=== PATIENT | male | born 1940 | race Caucasian/White ===

== ENCOUNTER 2021-04-05 10:44 | Day surgery (SDC) | payer MEDICARE, SELFPAY ==
[2021-03-25 15:13] VITALS: BMI 24.0
--- NOTE | 2021-03-31 16:40 | MHC.SHP ---
Pre-Procedural Eval Section A The patient is an INPATIENT: No The History & Physical has been completed within 30 days and I have reviewed it.: Yes Section B Chief Complaint: Cataract right eye Allergies: Allergies Allergy/AdvReac Type Severity Reaction Status Date / Time No Known Allergies Allergy Unverified 07/16/20 14:56 [No Known Allergies*] Plan Diagnosis/Plan: Unchanged I have reviewed the history and physical and performed a pertinent physical examination on my patient. No changes have occurred unless specified.
--- NOTE | 2021-04-02 10:22 | HO.ANESPROP2 ---
Documented by User: Katya Us 04/02/21 10:27 HPI - Anesthesia Eval Consult details Narrative: 80yo M for Right Cataract Extraction IOL Insertion PCP Cleared No previous cataract on record Xarelto for afib s/p AVR PMFSH Past Medical History Medical History (Updated 03/25/21 @ 15:18 by Courtney Nieto) Aortic valvular disease Arrhythmia CAD (coronary artery disease) COVID-19 vaccine administered CVA (cerebral vascular accident) GERD (gastroesophageal reflux disease) GI bleed History of urinary retention HTN (hypertension) On anticoagulant therapy On beta toña at home Pre-diabetes Prostate cancer Surgical History Surgical History (Updated 03/25/21 @ 15:18 by Courtney Nieto) H/O colonoscopy Hx of aortic valve replacement Hx of cholecystectomy Social History Social History (Updated 03/25/21 @ 15:21 by Courtney Nieto) Housing Other:: [facility] Living Are you a primary health and social care teacher to a significant other at home: No Do you presently have visiting nurse or other home services: No Patient Tobacco Use Status: Former Tobacco user Quit Date: age 30's Tobacco use type: Cigarette Use of substances other than those prescribed or required for medical reasons: No Have you been hit, kicked, punched, or otherwise hurt by someone within the past year? If so, by whom?: No Advance Directives Information Provided: No Recently lost weight without trying: No Eating poorly because of decreased appetite: No Nutrition Risks: Surgical patient >75years Meds Allergies Allergy/AdvReac Type Severity Reaction Status Date / Time No Known Allergies Allergy Unverified 07/16/20 14:56 [No Known Allergies*] Home Medications Medication Instructions Recorded Confirmed Last Taken Type amlodipine 2.5 mg PO DAILY 03/25/21 03/25/21 04/05/21 History cholecalciferol (vitamin D3) 50 mcg PO DAILY 03/25/21 03/25/21 Unknown History [Vitamin D3] ferrous sulfate [Iron (ferrous 325 mg PO TID 03/25/21 03/25/21 Unknown History sulfate)] furosemide [Lasix] 20 mg PO DAILY 03/25/21 03/25/21 Unknown History lorazepam 0.5 mg PO BID PRN 03/25/21 03/25/21 Unknown History magnesium oxide 400 mg PO DAILY 03/25/21 03/25/21 Unknown History metoprolol tartrate 25 mg PO BID 03/25/21 03/25/21 04/05/21 History multivitamin 1 tab PO DAILY 03/25/21 03/25/21 Unknown History pantoprazole 40 mg PO DAILY 03/25/21 03/25/21 04/05/21 History polyethylene glycol 3350 [Miralax] 17 g PO DAILY 03/25/21 03/25/21 Unknown History rivaroxaban [Xarelto] 15 mg PO QPM 03/25/21 03/25/21 04/04/21 History Exam Exam Date and Time: April 02, 2021 1022 Height,Weight and Vital Signs: Height 5 ft 9 in Weight 73.936 kg Narrative Narrative: Echo 11/2020 LV systolic function is normal without any obvious R WMA and EF 60%. LA mildly enlarged and RA is mildly enlarged. Aortic valve not well visualized. 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 Gradually worsening, but may not be much different from 1 year ago. Assessment and Plan Assessment Anesthesia Assessment: Chart Reviewed Documented by User: Sari Olivas 04/05/21 11:24 [facility] Past Medical History Medical History (Updated 03/25/21 @ 15:18 by Courtney Nieto) Aortic valvular disease Arrhythmia CAD (coronary artery disease) COVID-19 vaccine administered CVA (cerebral vascular accident) GERD (gastroesophageal reflux disease) GI bleed History of urinary retention HTN (hypertension) On anticoagulant therapy On beta toña at home Pre-diabetes Prostate cancer Surgical History Surgical History (Updated 03/25/21 @ 15:18 by Courtney Nieto) H/O colonoscopy Hx of aortic valve replacement Hx of cholecystectomy Social History Social History (Updated 03/25/21 @ 15:21 by Courtney Nieto) Housing Other:: [facility] Are you a primary health and social care teacher to a significant other at home: No Do you presently have visiting nurse or other home services: No Patient Tobacco Use Status: Former Tobacco user Quit Date: age 30's Tobacco use type: Cigarette Use of substances other than those prescribed or required for medical reasons: No Have you been hit, kicked, punched, or otherwise hurt by someone within the past year? If so, by whom?: No Advance Directives Information Provided: No Recently lost weight without trying: No Eating poorly because of decreased appetite: No Nutrition Risks: Surgical patient >75years Meds Allergies Allergy/AdvReac Type Severity Reaction Status Date / Time No Known Allergies Allergy Unverified 07/16/20 14:56 [No Known Allergies*] Home Medications Medication Instructions Recorded Confirmed Last Taken Type amlodipine 2.5 mg PO DAILY 03/25/21 03/25/21 04/05/21 History cholecalciferol (vitamin D3) 50 mcg PO DAILY 03/25/21 03/25/21 Unknown History [Vitamin D3] ferrous sulfate [Iron (ferrous 325 mg PO TID 03/25/21 03/25/21 Unknown History sulfate)] furosemide [Lasix] 20 mg PO DAILY 03/25/21 03/25/21 Unknown History lorazepam 0.5 mg PO BID PRN 03/25/21 03/25/21 Unknown History magnesium oxide 400 mg PO DAILY 03/25/21 03/25/21 Unknown History metoprolol tartrate 25 mg PO BID 03/25/21 03/25/21 04/05/21 History multivitamin 1 tab PO DAILY 03/25/21 03/25/21 Unknown History pantoprazole 40 mg PO DAILY 03/25/21 03/25/21 04/05/21 History polyethylene glycol 3350 [Miralax] 17 g PO DAILY 03/25/21 03/25/21 Unknown History rivaroxaban [Xarelto] 15 mg PO QPM 03/25/21 03/25/21 04/04/21 History Exam Airway Mallampati Class: II TM Dist: >3cm Neck ROM: Full Denture: Upper Partial: Lower Heart: RrR Lungs: CTA Assessment and Plan Assessment Anesthesia Assessment: Anesthesia Plan Discussed and Chart Reviewed Final Anesthetic Review NPO: Yes (Sip water with med) ASA Class: III Final Preanesthetic Review: No Changes in Pt Med Stat and Consent Obtained/Reviewed Patient Risk: Intermediate Procedure Risk: Intermediate Anesthetic Plan Anesthetic Plan: MAC: Disposition: Standard PACU
[2021-04-05 11:11] VITALS: BP 125/56; PULSE 78; RESP 18; TEMP 36.8; O2SAT 94
[2021-04-05] MEDS: Lactated Ringers 500 ML 50 ML IV (11:14)
[2021-04-05] MEDS: Tropicamide 1 % Ophth Sol 3 ML BTL 1 DROP EYE-RIGHT ×3 (11:15→11:17)
[2021-04-05] MEDS: Phenylephrine HCL 2.5% Oph SoL 2 ML BOTTLE 1 DROP EYE-RIGHT ×3 (11:15→11:17)
[2021-04-05] MEDS: Tetracaine HCl/PF 0.5% Oph Sol 4 ML DROPS 1 DROP EYE-RIGHT (11:15)
--- NOTE | 2021-04-05 12:34 | HO.PNOPHT ---
Ophthalmology Procedure Procedure Date of Service: 04/05/21 Ophthalmology Viscoelastic: Danita Lowryt Dual Pack Pro Ophthalmology Lenses: TECCLARE [id number] (21) Procedure Notes: PREOPERATIVE DIAGNOSIS: Decreased visual acuity right eye secondary to cataract POSTOPERATIVE DIAGNOSIS: Same PROCEDURE: Right cataract extraction with intraocular lens insertion SURGEON: Panchito Samayoa M.D. ANESTHESIA: Topical/MAC ESTIMATED BLOOD LOSS: None COMPLICATIONS: None After obtaining informed consent, the patient was brought to the operating room suite and placed in the supine position. After adequate sedation per anesthesia, topical drops of Tetracaine were given to the right eye. The eye was then prepped and draped in the usual sterile fashion. The operating room microscope was then positioned over the operative eye and a lid speculum placed. A paracentesis was created. Viscoelastic was then instilled into the anterior chamber. A three plane incision was then created temporally, utilizing a 2.85 mm keratome. Capsulotomy forceps were then utilized to create a circular tear capsulotomy. Hydrodissection and hydrodelineation were carried out until adequate mobilization of the nucleus occurred. Phacoemulsification was then utilized to remove the dense central nucleus followed by removal of the cortical material utilizing the automated aspiration irrigation unit. Viscoelastic was instilled into the posterior capsular bag followed by placement of a posterior chamber intraocular lens without difficulty. The residual Viscoelastic was then removed utilizing the automated IA machine. The wound was checked and found to be watertight. The patient tolerated the procedure well and the lid speculum was removed. Intracameral injection of Vigamox 0.1 mL followed by a subtenon injection of Kenalog-40 0.2 mL were administered. The patient will be seen in the a.m.
[2021-04-05 12:57] VITALS: BP 146/89; PULSE 74; RESP 16; TEMP 36.2; O2SAT 96
== END 2021-04-05 13:12 | disposition home or self-care (01) ==
PROVIDERS: PCP Internal Medicine Pulmonary Disease; Visit Provider Ophthalmology
PROC: (CPT 66985; principal; 2021-04-05 13:20)
DX: H25.11 Age-related nuclear cataract, right eye (principal); I69.398 Other sequelae of cerebral infarction; H54.61 Unqualified visual loss, right eye, normal vision left eye; H40.013 Open angle with borderline findings, low risk, bilateral; I10 Essential (primary) hypertension; I48.91 Unspecified atrial fibrillation; Z95.2 Presence of prosthetic heart valve; I69.351 Hemiplegia and hemiparesis following cerebral infarction affecting right dominant side; Z79.01 Long term (current) use of anticoagulants; Z79.899 Other long term (current) drug therapy; Z87.891 Personal history of nicotine dependence
CPT/HCPCS: 66984; J2250; J3010; J3300; V2632

== ENCOUNTER 2021-04-19 09:40 | Day surgery (SDC) | payer MEDICARE, SELFPAY ==
[2021-03-25 15:26] VITALS: BMI 24.0
--- NOTE | 2021-04-15 08:20 | MHC.SHP ---
Pre-Procedural Eval Section A The patient is an INPATIENT: No The History & Physical has been completed within 30 days and I have reviewed it.: Yes Section B Chief Complaint: Cataract Left eye Allergies: Allergies Allergy/AdvReac Type Severity Reaction Status Date / Time No Known Allergies Allergy Unverified 07/16/20 14:56 [No Known Allergies*] Plan Diagnosis/Plan: Unchanged I have reviewed the history and physical and performed a pertinent physical examination on my patient. No changes have occurred unless specified.
--- NOTE | 2021-04-16 09:56 | P.CONAN_ITS ---
Documented by User: Katya Ruizney 04/16/21 09:58 HPI - Anesthesia Eval Consult details Narrative: 80yo M for Left Cataract Extraction IOL Insertion PCP cleared Xarelto for afib Right eye 04/05/21: Fent 50, Midaz 1 PMFSH Past Medical History Medical History (Updated 03/25/21 @ 15:18 by Courtney Nieto) Aortic valvular disease Arrhythmia CAD (coronary artery disease) COVID-19 vaccine administered CVA (cerebral vascular accident) GERD (gastroesophageal reflux disease) GI bleed History of urinary retention HTN (hypertension) On anticoagulant therapy On beta toña at home Pre-diabetes Prostate cancer Surgical History Surgical History (Updated 03/25/21 @ 15:18 by Courtney Nieot) H/O colonoscopy Hx of aortic valve replacement Hx of cholecystectomy Social History Social History (Updated 03/25/21 @ 15:21 by Courtney Nieto) Housing Other:: [facility] Living Are you a primary direct care counselor to a significant other at home: No Do you presently have visiting nurse or other home services: No Patient Tobacco Use Status: Former Tobacco user Quit Date: age 30's Tobacco use type: Cigarette Use of substances other than those prescribed or required for medical reasons: No Have you been hit, kicked, punched, or otherwise hurt by someone within the past year? If so, by whom?: No Advance Directives Information Provided: No Recently lost weight without trying: No Eating poorly because of decreased appetite: No Nutrition Risks: Surgical patient >75years Poor oral hygiene: No (upper full & lower partial denture) Meds Allergies Allergy/AdvReac Type Severity Reaction Status Date / Time No Known Allergies Allergy Unverified 07/16/20 14:56 [No Known Allergies*] Home Medications Medication Instructions Recorded Confirmed Last Taken Type amlodipine 2.5 mg PO DAILY 03/25/21 03/25/21 04/18/21 History cholecalciferol (vitamin D3) 50 mcg PO DAILY 03/25/21 03/25/21 04/18/21 History [Vitamin D3] ferrous sulfate [Iron (ferrous 325 mg PO TID 03/25/21 03/25/21 04/18/21 History sulfate)] furosemide [Lasix] 20 mg PO DAILY 03/25/21 03/25/21 04/18/21 History lorazepam 0.5 mg PO BID PRN 03/25/21 03/25/21 04/18/21 History magnesium oxide 400 mg PO DAILY 03/25/21 03/25/21 04/18/21 History metoprolol tartrate 25 mg PO BID 03/25/21 03/25/21 04/18/21 History multivitamin 1 tab PO DAILY 03/25/21 03/25/21 04/18/21 History pantoprazole 40 mg PO DAILY 03/25/21 03/25/21 04/18/21 History polyethylene glycol 3350 [Miralax] 17 g PO DAILY 03/25/21 03/25/21 04/18/21 History rivaroxaban [Xarelto] 15 mg PO QPM 03/25/21 03/25/21 04/18/21 History Exam Exam Date and Time: April 16, 2021 0956 Height,Weight and Vital Signs: Height 5 ft 9 in Weight 73.936 kg Narrative Narrative: Echo 11/2020 LV systolic function is normal without any obvious R WMA and EF 60%. LA mildly enlarged and RA is mildly enlarged. Aortic valve not well visualized. 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 Gradually worsening, but may not be much different from 1 year ago. Assessment and Plan Assessment Anesthesia Assessment: Chart Reviewed Documented by User: Sari Olivas 04/19/21 11:40 [facility] Past Medical History Medical History (Updated 03/25/21 @ 15:18 by Courtney Nieto) Aortic valvular disease Arrhythmia CAD (coronary artery disease) COVID-19 vaccine administered CVA (cerebral vascular accident) GERD (gastroesophageal reflux disease) GI bleed History of urinary retention HTN (hypertension) On anticoagulant therapy On beta toña at home Pre-diabetes Prostate cancer Surgical History Surgical History (Updated 03/25/21 @ 15:18 by Courtney Nieto) H/O colonoscopy Hx of aortic valve replacement Hx of cholecystectomy Social History Social History (Updated 03/25/21 @ 15:21 by Courtney Nieto) [facility] Are you a primary direct care counselor to a significant other at home: No Do you presently have visiting nurse or other home services: No Patient Tobacco Use Status: Former Tobacco user Quit Date: age 28's Tobacco use type: Cigarette Use of substances other than those prescribed or required for medical reasons: No Have you been hit, kicked, punched, or otherwise hurt by someone within the past year? If so, by whom?: No Advance Directives Information Provided: No Recently lost weight without trying: No Eating poorly because of decreased appetite: No Nutrition Risks: Surgical patient >75years Poor oral hygiene: No (upper full & lower partial denture) Meds Allergies Allergy/AdvReac Type Severity Reaction Status Date / Time No Known Allergies Allergy Unverified 07/16/20 14:56 [No Known Allergies*] Home Medications Medication Instructions Recorded Confirmed Last Taken Type amlodipine 2.5 mg PO DAILY 03/25/21 03/25/21 04/18/21 History cholecalciferol (vitamin D3) 50 mcg PO DAILY 03/25/21 03/25/21 04/18/21 History [Vitamin D3] ferrous sulfate [Iron (ferrous 325 mg PO TID 03/25/21 03/25/21 04/18/21 History sulfate)] furosemide [Lasix] 20 mg PO DAILY 03/25/21 03/25/21 04/18/21 History lorazepam 0.5 mg PO BID PRN 03/25/21 03/25/21 04/18/21 History magnesium oxide 400 mg PO DAILY 03/25/21 03/25/21 04/18/21 History metoprolol tartrate 25 mg PO BID 03/25/21 03/25/21 04/18/21 History multivitamin 1 tab PO DAILY 03/25/21 03/25/21 04/18/21 History pantoprazole 40 mg PO DAILY 03/25/21 03/25/21 04/18/21 History polyethylene glycol 3350 [Miralax] 17 g PO DAILY 03/25/21 03/25/21 04/18/21 History rivaroxaban [Xarelto] 15 mg PO QPM 03/25/21 03/25/21 04/18/21 History Exam Airway Mallampati Class: II TM Dist: >3cm Denture: Upper and Lower Heart: rrr Lungs: cta Assessment and Plan Assessment Anesthesia Assessment: Anesthesia Plan Discussed and Chart Reviewed Final Anesthetic Review NPO: Yes ASA Class: III Final Preanesthetic Review: No Changes in Pt Med Stat and Consent Obtained/Reviewed Patient Risk: Intermediate Procedure Risk: Intermediate Anesthetic Plan Anesthetic Plan: MAC: Disposition: Standard PACU
[2021-04-19 11:29] VITALS: BP 166/94; PULSE 82; RESP 18; TEMP 36.1; O2SAT 97
[2021-04-19] MEDS: Tetracaine HCl/PF 0.5% Oph Sol 4 ML DROPS 1 DROP EYE-LEFT (11:30)
[2021-04-19] MEDS: Tropicamide 1 % Ophth Sol 3 ML BTL 1 DROP EYE-LEFT ×3 (11:35→11:41)
[2021-04-19] MEDS: Phenylephrine HCL 2.5% Oph SoL 2 ML BOTTLE 1 DROP EYE-LEFT ×3 (11:37→11:43)
[2021-04-19] MEDS: Lactated Ringers 500 ML 50 ML IV (11:38)
--- NOTE | 2021-04-19 14:01 | HO.PNOPHT ---
Ophthalmology Procedure Procedure Date of Service: 04/19/21 Ophthalmology Viscoelastic: Healjami Duet Dual Pack Pro Ophthalmology Lenses: TECCLARE [id number] (643) Procedure Notes: PREOPERATIVE DIAGNOSIS: Decreased visual acuity left eye secondary to cataract POSTOPERATIVE DIAGNOSIS: Same PROCEDURE: Left cataract extraction with intraocular lens insertion SURGEON: Panchito Samayoa M.D. ANESTHESIA: Topical/MAC ESTIMATED BLOOD LOSS: None COMPLICATIONS: None After obtaining informed consent, the patient was brought to the operation room suite and placed in the supine position. After adequate sedation per anesthesia, topical drops of Tetracaine were given to the left eye. The eye was then prepped and draped in the usual sterile fashion. The operating room microscope was then positioned over the operative eye and a lid speculum placed. A paracentesis was created. Viscoelastic was then instilled into the anterior chamber. A three plane incision was then created temporally, utilizing a 2.85 mm keratome. Capsulotomy forceps were then utilized to create a circular tear capsulotomy. Hydrodissection and hydrodelineation were carried out until adequate mobilization of the nucleus occurred. Phacoemulsification was then utilized to remove the dense central nucleus followed by removal of the cortical material utilizing the automated aspiration irrigation unit. Viscoat elastic was instilled into the posterior capsular bag followed by placement of a posterior chamber intraocular lens without difficulty. The residual Viscoat elastic was then removed utilizing the automated IA machine. The wound was check and found to be watertight. The patient tolerated the procedure well and the lid speculum was removed. Intracameral injection of Vigamox 0.1 mL followed by a subtenon injection of Kenalog-40 0.2 mL were administered. The patient will be seen in the a.m.
[2021-04-19 14:39] VITALS: BP 162/82; PULSE 64; RESP 16; TEMP 36.1; O2SAT 95
== END 2021-04-19 14:28 | disposition home or self-care (01) ==
PROVIDERS: PCP Internal Medicine Pulmonary Disease; Visit Provider Ophthalmology
PROC: (CPT 66985; principal; 2021-04-19 13:00)
DX: H25.12 Age-related nuclear cataract, left eye (principal); H54.7 Unspecified visual loss; H40.013 Open angle with borderline findings, low risk, bilateral; I48.91 Unspecified atrial fibrillation; Z79.01 Long term (current) use of anticoagulants; I69.951 Hemiplegia and hemiparesis following unspecified cerebrovascular disease affecting right dominant side; I69.998 Other sequelae following unspecified cerebrovascular disease; H53.8 Other visual disturbances; I11.9 Hypertensive heart disease without heart failure; I25.10 Atherosclerotic heart disease of native coronary artery without angina pectoris; Z95.2 Presence of prosthetic heart valve; C61 Malignant neoplasm of prostate; Z87.891 Personal history of nicotine dependence
CPT/HCPCS: 66984; J2250; J3010; J3300; V2632

== ENCOUNTER 2022-10-07 11:29 | Outpatient (REF) | payer MEDICARE, SELFPAY ==
--- NOTE | ~2022-10-07 | XR_ITS ---
EXAMINATION: XR HIP, RIGHT CLINICAL INFORMATION: Pain COMPARISON: None TECHNIQUE: Two views of the right hip. FINDINGS: Pelvic enthesopathy. No acute fracture or dislocation. 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 Arterial calcifications are noted. 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
== END 2022-10-07 11:30 | disposition home or self-care (01) ==
LOC: HO.HOSX 11:29
PROVIDERS: Visit Provider Physician Assistant
DX: M16.11 Unilateral primary osteoarthritis, right hip (principal); S39.012A Strain of muscle, fascia and tendon of lower back, initial encounter; X58.XXXA Exposure to other specified factors, initial encounter; Y93.9 Activity, unspecified; Y92.9 Unspecified place or not applicable; Y99.9 Unspecified external cause status
CPT/HCPCS: 73502; 99202

== ENCOUNTER 2022-10-09 15:59 | Emergency (ER) | payer MEDICARE, SELFPAY ==
--- NOTE | ~2022-10-09 | CT_ITS ---
EXAMINATION: CT ABDOMEN AND PELVIS WITHOUT CONTRAST CLINICAL INFORMATION: Right flank pain COMPARISON: None TECHNIQUE: Multidetector volumetric imaging was performed from the superior aspect of the liver through the pubic symphysis. Sagittal and coronal reformatted images were obtained on the technologist's workstation. This CT examination was performed using dose optimization techniques as appropriate, variously including the following: *Automated exposure control *Adjustment of mA and/or kV according to patient size (this includes techniques or standardized protocols for targeted exams where dose is matched to indication/reason for exam; i.e. extremities or head) *Use of iterative reconstruction technique DLP: 564 mGy-cm FINDINGS: LUNG BASES: Small layering right-sided pleural effusion. LIVER, GALLBLADDER, AND BILIARY TREE: Nodular contour liver suggesting cirrhosis. No discrete lesion or biliary ductal dilatation. Gallbladder is not visualized. PANCREAS: Unremarkable. SPLEEN: Unremarkable. ADRENAL GLANDS: Unremarkable. KIDNEYS AND URETERS: The kidneys are normal in size, shape, and attenuation. No hydronephrosis, hydroureter, or calculi seen. No perinephric stranding. BLADDER: Unremarkable. GASTROINTESTINAL TRACT: There is approximate 2.2 cm lobulated mass within the proximal sigmoid colon suspicious for mass. No obstruction. Scattered diverticula without acute inflammatory changes. No small bowel abnormality. No mesenteric lesion or fluid collection. ABDOMINAL WALL: No significant hernia is appreciated. LYMPH NODES: Normal. VASCULAR: Unremarkable. PELVIC VISCERA: Unremarkable. OSSEOUS STRUCTURES: Unremarkable. CT/CT abdomen pelvis wo IV con IMPRESSION: 1. No stones or obstructive uropathy. Normal appendix. 2. 2.2 cm lobulated mass within the proximal sigmoid colon suspicious for mass. Recommend colonoscopy. 3. Cirrhotic liver. 4. Small right-sided pleural effusion. Fleischner guidelines were followed.
[2022-10-09 16:52] VITALS: BP 149/75; PULSE 74; RESP 16; TEMP 36.6; O2SAT 97; BMI 22.9
--- NOTE | 2022-10-09 17:16 | ED_ITS ---
HPI - General Adult General Chief complaint: Weakness Stated complaint: severe low back pain Time Seen by Provider: 10/09/22 17:14 Source: patient, family, RN notes reviewed and old records reviewed Mode of arrival: wheelchair Limitations: other ( [place]) History of Present Illness HPI narrative: 81-year-old male with past medical history of AFib, anemia, hypertension, history of stroke in 2014 and 2020 with mild right-sided weakness, hypercholesterolemia, prostate CA, self-catheterizations 3 times a day is here today for complaining of left lower back pain. Patient reports that he has been seen by orthopedics for right hip pain however upon exam in the office was complaining of right lumbar pain. Patient was seen by Orthopedics on 10/07/2022. His pain has been getting progressively worse. Patient was given tramadol by his PCP, however he reports no relief. Patient lives alone in assisted living. Patient denies urinary frequency or burning. Reports to have black stools on iron. Last colonoscopy in 2018. Onset (ago): week(s) Related Data Home Medications Medication Instructions Recorded Confirmed amlodipine 2.5 mg tablet 2.5 mg PO DAILY 03/25/21 03/25/21 cholecalciferol (vitamin D3) 50 50 mcg PO DAILY 03/25/21 03/25/21 mcg (2,000 unit) capsule (Vitamin D3) ferrous sulfate 325 mg (65 mg 325 mg PO TID 03/25/21 03/25/21 iron) tablet (Iron (ferrous sulfate)) furosemide 20 mg tablet (Lasix) 20 mg PO DAILY 03/25/21 03/25/21 lorazepam 0.5 mg tablet 0.5 mg PO BID PRN Anxiety 03/25/21 03/25/21 magnesium oxide 400 mg PO DAILY 03/25/21 03/25/21 metoprolol tartrate 25 mg tablet 25 mg PO BID 03/25/21 03/25/21 multivitamin 1 tab PO DAILY 03/25/21 03/25/21 pantoprazole 40 mg tablet,delayed 40 mg PO DAILY 03/25/21 03/25/21 release polyethylene glycol 3350 17 gram 17 g PO DAILY 03/25/21 03/25/21 oral powder packet (Miralax) rivaroxaban 15 mg tablet (Xarelto) 15 mg PO QPM 03/25/21 03/25/21 atorvastatin 40 mg tablet 40 mg PO DAILY 10/07/22 tramadol 50 mg tablet 50 mg PO TID PRN 10/07/22 Previous Rx's Medication Instructions Recorded celecoxib 200 mg capsule (Celebrex) 200 mg PO BID 30 days #60 caps 10/07/22 cefuroxime axetil 250 mg tablet 250 mg PO BID 7 days #14 tabs 10/09/22 tramadol 50 mg tablet 50 mg PO BID PRN pain #14 tabs 10/09/22 Allergies Allergy/AdvReac Type Severity Reaction Status Date / Time No Known Allergies Allergy Unverified 07/16/20 14:56 [No Known Allergies*] Review of Systems Review of Systems: Constitutional : No Weight loss, No Fever, No Chills, No Night Sweats, No Fatigue, No Malaise ENT/Mouth : No Hearing loss, No Ear Pain, No Nasal Congestion, No sore throat, No Rhinorrhea, No Swallowing Difficulty Eyes: No Eye Pain, No Swelling, No Redness, No Foreign Body, No Discharge, No Vision Changes Cardiovascular : No Chest Pain, No SOB, No Dyspnea on Exertion, No Orthopnea, No Edema, No Palpitations Respiratory : No Cough, No Sputum, No Wheezing, No Smoke Exposure, No Dyspnea Gastrointestinal : No Nausea, No Vomiting, No Diarrhea, Constipation, No abdominal Pain, No Hematochezia, Melena on iron Genitourinary : no irregular bleeding, No Dysuria, No Urinary Frequency, No Hematuria, No Urinary Incontinence, No Urgency, No Flank Pain, No Urinary Flow Changes, No Hesitancy Musculoskeletal : No joint pain, No Myalgias, No Joint Swelling, right lower back pain Skin : No Skin Lesions, No rash Neuro : No Weakness, No Numbness, No Paresthesias, No Loss of Consciousness, No Dizziness, No Headache Psych : No Anxiety/Panic, No Depression, Heme/Lymph: No Bruising, No Bleeding,No Lymphadenopathy Yes all other systems are reviewed and are negative [facility] Past Medical History Medical History (Updated 10/09/22 @ 21:18 by Kristi Vanegas [facility]) Aortic valvular disease Arrhythmia CAD (coronary artery disease) COVID-19 vaccine administered CVA (cerebral vascular accident) GERD (gastroesophageal reflux disease) GI bleed History of urinary retention HTN (hypertension) On anticoagulant therapy On beta toña at home Pre-diabetes Prostate cancer Surgical History (Updated 03/25/21 @ 15:18 by Courtney Nieto RN) H/O colonoscopy Hx of aortic valve replacement Hx of cholecystectomy Social History Social History (Updated 03/25/21 @ 15:21 by Courtney Nieto RN) Housing Other:: [facility] Are you a primary home care provider to a significant other at home: No Do you presently have visiting nurse or other home services: No Patient Tobacco Use Status: Former Tobacco user Quit Date: age 30's Tobacco use type: Cigarette Smoked in Last 30 Days: No Advance Directives: No Advance Directives Information Provided: No Physical Exam ED Vital Signs: Vital Signs - 24 hr 10/09/22 16:52 10/09/22 18:40 Temperature 97.8 F Pulse Rate 74 Respiratory Rate 16 18 Blood Pressure 149/75 H Pulse Oximetry 97 Oxygen Delivery Method Room Air BMI result Body Mass Index 22.9 Const General: cooperative, in distress and well groomed Nutritional Appearance: average body habitus and well nourished Orientation/consciousness: patient oriented x3 Limitations: other limitations ( [place]) HENMT Head: Yes normal to inspection, Yes normocephalic and Yes atraumatic Resp Effort & Inspection: normal respiratory effort and able to speak in complete sentences Auscultation: clear to auscultation bilaterally Cardio Rate: regular rate Rhythm: regular rhythm Heart sounds: S1 normal heart sound present and S2 normal heart sound present GI Inspection: Yes normal to inspection Auscultation: normal bowel sounds Rectal Exam - Male: Yes deferred General: Yes no CVA tenderness Back/Spine/Pelvis Back: no CVA tenderness Cervical Spine: normal cervical lordosis Thoracic/Lumbar Spine: thoracic and lumbar spine normal to inspection and other (R paraspinal tenderness) Pelvis: no pain with anterior-posterior compression Skin General skin exam: no rashes or lesions noted Neuro General: patient oriented x3 Extrem General: Yes normal to inspection Right upper extremity: normal to inspection Left upper extremity: normal to inspection Right lower extremity: normal to inspection Left lower extremity: normal to inspection Course Course Course Narrative: 81-year-old male with past medical history of AFib, anemia, hypertension, history of stroke in 2014 and 2020 with mild right-sided weakness, hypercholesterolemia, prostate CA, self-catheterizations 3 times a day is here today for complaining of left lower back pain. Patient reports that he has been seen by orthopedics for right hip pain however upon exam in the office was complaining of right lumbar pain. Patient was seen by Orthopedics on 10/07/2022. His pain has been getting progressively worse. Patient was given tramadol by his PCP, however he reports no relief. Patient lives alone in assisted living. Patient denies urinary frequency or burning. Reports to have black stools, on iron. Last colonoscopy in 2019. Mild right CVA tenderness. Patient straight caths himself 3 times a day. His symptoms of right lumbar pain started 3 weeks ago. Suspicion of UTI, pyelonephritis, kidney stone, Reevaluation(s) Reevaluation #1: Urine positive for nitrate, moderate leukocyte esterase, positive bacteria. No leukocytosis, will order Rocephin, mild hydration Reevaluation #2: Patient was able ambulate with a wheeled walker with steady gait. Mild right lumbar pain. Will send patient home after antibiotics and hydration. 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 Incidental finding lobulated mass within proximal sigmoid colon, suspicion for mass. CT scan results given to patient. Will send patient home with a disc Medications Administered Generic Name Dose Route Start Last Admin Trade Name Freq PRN Reason Stop Dose Admin Sodium Chloride 500 mls @ 500 mls/hr 10/09/22 20:33 10/09/22 21:02 Ns IV 10/09/22 21:32 500 mls/hr .Q1H STA Administration Discontinued Medications Generic Name Dose Route Start Last Admin Trade Name Freq PRN Reason Stop Dose Admin Ceftriaxone Sodium 1 gm/ 50 mls @ 100 mls/hr 10/09/22 20:33 10/09/22 21:02 Sodium Chloride IV 10/09/22 21:02 100 mls/hr ONCE ONE Administration Morphine Sulfate 2 mg 10/09/22 17:18 10/09/22 18:40 Morphine Sulfate 2 Mg/Ml Cartridge IVPUSH 10/09/22 17:19 2 mg ONCE ONE Administration Protocol Medical Decision Making Medical Decision Making Differential Diagnoses: Differential diagnosis (Pyelonephritis, hydronephrosis, UTI, kidney stone) Lab Attestation: I reviewed the patient's lab results. Discussion of test interpretation with radiology: Discussion of test interpretation with radiology FINDINGS: LUNG BASES: Small layering right-sided pleural effusion.? LIVER, GALLBLADDER, AND BILIARY TREE: Nodular contour liver suggesting cirrhosis. No discrete lesion or biliary ductal dilatation. Gallbladder is not visualized.? PANCREAS: Unremarkable.? SPLEEN: Unremarkable.? ADRENAL GLANDS: Unremarkable.? KIDNEYS AND URETERS: The kidneys are normal in size, shape, and attenuation. No hydronephrosis, hydroureter, or calculi seen. No perinephric stranding. ? BLADDER: Unremarkable.? GASTROINTESTINAL TRACT: There is approximate 2.2 cm lobulated mass within the proximal sigmoid colon suspicious for mass. No obstruction. Scattered diverticula without acute inflammatory changes. No small bowel abnormality. No mesenteric lesion or fluid collection. ABDOMINAL WALL: No significant hernia is appreciated.? LYMPH NODES: Normal. VASCULAR: Unremarkable. PELVIC VISCERA: Unremarkable.? OSSEOUS STRUCTURES: Unremarkable.? CT/CT abdomen pelvis wo IV con IMPRESSION: 1.? No stones or obstructive uropathy. Normal appendix. 2.? 2.2 cm lobulated mass within the proximal sigmoid colon suspicious for mass. Recommend colonoscopy. 3.? Cirrhotic liver. 4.? Small right-sided pleural effusion. ? Discharge Plan Discharge Clinical Impression: Lumbar strain Qualifiers: Encounter type: subsequent encounter Qualified Code(s): S39.012D - Strain of muscle, fascia and tendon of lower back, subsequent encounter UTI (urinary tract infection) Qualifiers: Urinary tract infection type: site unspecified Hematuria presence: without hematuria Qualified Code(s): N39.0 - Urinary tract infection, site not specified Patient Disposition: Home, Self-Care Instructions: Urinary Tract Infection in Men (ED), Low Back Strain (ED) Additional Instructions: You were here today for low back pain. Urinalysis showed that you have urinary tract infection. Please make sure that you take antibiotics as ordered. You were given 1st dose of antibiotic in the emergency room. Start with antibiotics tomorrow morning. Follow-up with your primary care doctor and your urologist next week. You will be given pain medication to take home. Make sure that when you take this medication you are only taking when you have pain. You might need pain management to help with your back pain., however the symptoms of urinary tract infection could be back pain. Please return to emergency department if you have any worsening symptoms. Prescriptions: New cefuroxime axetil 250 mg tablet 250 mg PO BID 7 Days Qty: 14 0RF tramadol 50 mg tablet 50 mg PO BID PRN (Reason: pain) Qty: 14 0RF No Action multivitamin Tablet 1 tab PO DAILY polyethylene glycol 3350 [Miralax] 17 gram Powder In Packet 17 g PO DAILY amlodipine 2.5 mg Tablet 2.5 mg PO DAILY lorazepam 0.5 mg Tablet 0.5 mg PO BID PRN (Reason: Anxiety) pantoprazole 40 mg Tablet,Delayed Release (Dr/Ec) 40 mg PO DAILY ferrous sulfate [Iron (ferrous sulfate)] 325 mg (65 mg iron) Tablet 325 mg PO TID furosemide [Lasix] 20 mg Tablet 20 mg PO DAILY metoprolol tartrate 25 mg Tablet 25 mg PO BID cholecalciferol (vitamin D3) [Vitamin D3] 50 mcg (2,000 unit) Capsule 50 mcg PO DAILY Xarelto 15 mg Tablet 15 mg PO QPM magnesium oxide 400 mg magnesium Tablet 400 mg PO DAILY atorvastatin 40 mg tablet 40 mg PO DAILY tramadol 50 mg tablet 50 mg PO TID PRN celecoxib [Celebrex] 200 mg capsule 200 mg PO BID 30 Days Qty: 60 3RF Referrals: Daniel Beauchamp MD [Primary Care Provider] - 5 days Slade Umaña MD [Physician] - 2 weeks (GASTROINTESTINAL TRACT: There is approximate 2.2 cm lobulated mass within the proximal sigmoid colon suspicious for mass. No obstruction. Scattered diverticula without acute inflammatory changes. No small bowel abnormality. No mesenteric lesion or fluid collection. ) Rolo Yusuf MD [Physician] - 5 days (dx UTI)
[2022-10-09 18:40] VITALS: RESP 18
[2022-10-09] MEDS: Morphine Sulfate 2 MG/ML CARTRIDGE IVPUSH (18:40)
[2022-10-09 18:42] LABS: MANUAL DIFF FLAG NO
[2022-10-09 18:47] LABS: Basophils Percent Auto 0.4 % (0-2); Eosinophils Absolute Auto 0.2 X10*3/uL (0.0-0.4); Eosinophils Percent Auto 2.1 % (0-4); Hematocrit 43.1 % (42.0-52.0); Hemoglobin 14.3 g/dl (14.0-18.0); Imm Gran Abs Auto 0.02 X10*3/uL (0.00-0.03); Imm Gran Pct Auto 0.2 % (0.0-0.4); Lymphocytes Absolute Auto 1.4 X10*3/uL (1.2-4.9); Lymphocytes Percent Auto 17.5 % (20-40); Mean Corpuscular HGB Conc 33.2 g/dl (31.0-36.0); Mean Corpuscular Volume 90.5 fL (80.0-98.0); Mean Platelet Volume 11.2 fL (9.4-12.4); Monocytes Absolute Auto 0.6 X10*3/uL (0.1-1.2); Monocytes Percent Auto 7.8 % (2-11); Neutrophils Absolute Auto 5.9 x10*3/uL (2.0-8.3); Platelet Count 178 X10*3/uL (160-400); Red Blood Count 4.76 X10*6/uL (4.60-5.80); Red Cell Distribution Width 13.7 % (11.0-16.0); White Blood Count 8.2 X10*3/uL (4.8-10.8)
--- NOTE | 2022-10-09 18:48 | PC.NURSE ---
patient a/ox4 . xiomara heart rate regular at 78 beats per minute . breathing even and unlabored . lungs clear throughout . skin pink warm and dry . abdomen soft . right sided/flank rebounded tenderness 10 out of 10 pain reported . patient medicated with morphine IVP as ordered . Iv placed in left A.C labs sent . patient to [facility] patient has history of stroke in 2015 has history of right sided weakness as reported by daughter at bedside . patient self catheterizes at home . patient and family aware of plan of care .
[2022-10-09 19:04] LABS: Alanine Aminotransferase 36 U/L (0-40); Alkaline Phosphatase 152 U/L (39-117); Anion Gap 15 (12-20); Aspartate Amino Transferase 33 U/L (5-37); Bilirubin Total 0.8 mg/dL (0.0-1.0); Blood Urea Nitrogen 17 mg/dL (9-16); Calcium 9.4 mg/dL (8.4-10.2); Carbon Dioxide 28 mmol/L (22-29); Chloride 99 mmol/L (96-108); Creatinine Clr Calc Pharmacy 60.4; Estimated Glomerular Filt Rate > 60; Glucose Random 92 mg/dL (60-115); Potassium 4.7 mmol/L (3.3-5.1); Sodium 137 mmol/L (135-145); Total Protein 7.6 g/dL (6.5-8.0)
[2022-10-09 19:39] LABS: Appearance Urine Clear; Color Urine Yellow; Glucose Urine UA Negative (Negative); Leukocyte Esterase Urine Moderate (2+) (Negative); Nitrite Urine Positive (Negative); Specific Gravity - Urine 1.015 (1.005-1.025); UMIC TRIGGER UACC YES; Urine Blood Negative (Negative); Urine Ketones Negative (Negative); Urine Protein Negative (Neg-Trace)
[2022-10-09 19:53] LABS: Bacteria Urine 4+ (None Seen); Hyaline Casts Urine 0-2 /LPF (0-2); RBC Urine 0-2 /HPF (0-2); Squamous Epithelial Cell Urine 0-2 /HPF (0-2); UACC Culture Trigger YES
[2022-10-09] MEDS: 0.9 % Sodium Chloride 500 ML IV (21:02)
[2022-10-09] MEDS: cefTRIAXone sodium 1 GM in 0.9 % Sodium Chloride 50 ML IV (21:02)
== END 2022-10-09 22:04 | disposition home or self-care (01) ==
PROVIDERS: Nurse Practitioner Family; Emergency Provider Internal Medicine; PCP Internal Medicine
DX: N39.0 Urinary tract infection, site not specified (principal); M54.50 Low back pain, unspecified; I10 Essential (primary) hypertension; I48.91 Unspecified atrial fibrillation; Z20.822 Contact with and (suspected) exposure to COVID-19; Z79.01 Long term (current) use of anticoagulants; Z87.891 Personal history of nicotine dependence; Z79.899 Other long term (current) drug therapy
CPT/HCPCS: 36415; 74176; 80053; 81001; 85025; 87086; 87088; 87186; 96374; 96375; 99284; J0696; J2270

== ENCOUNTER 2023-06-26 11:25 | Outpatient (REF) | payer MEDICARE, SELFPAY ==
[2023-06-26 13:11] LABS: MANUAL DIFF FLAG NO
[2023-06-26 13:20] LABS: Basophils Absolute Auto 0.1 X10*3/uL (0.0-0.2); Basophils Percent Auto 0.5 % (0-2); Eosinophils Absolute Auto 0.3 X10*3/uL (0.0-0.4); Eosinophils Percent Auto 3.3 % (0-4); Hematocrit 44.7 % (42.0-52.0); Hemoglobin 14.8 g/dl (14.0-18.0); Imm Gran Abs Auto 0.04 X10*3/uL (0.00-0.03); Imm Gran Pct Auto 0.4 % (0.0-0.4); Lymphocytes Percent Auto 21.9 % (20-40); Mean Corpuscular HGB Conc 33.1 g/dl (31.0-36.0); Mean Corpuscular Hemoglobin 31.1 pg (27.0-33.0); Mean Corpuscular Volume 93.9 fL (80.0-98.0); Mean Platelet Volume 11.4 fL (9.4-12.4); Monocytes Absolute Auto 0.7 X10*3/uL (0.1-1.2); Monocytes Percent Auto 7.4 % (2-11); Neutrophils Absolute Auto 6.1 x10*3/uL (2.0-8.3); Neutrophils Percent Auto 66.5 % (45-73); Platelet Count 189 X10*3/uL (160-400); Red Blood Count 4.76 X10*6/uL (4.60-5.80); Red Cell Distribution Width 13.6 % (11.0-16.0); White Blood Count 9.2 X10*3/uL (4.8-10.8)
[2023-06-26 13:29] LABS: Estimated Average Glucose 126 mg/dL
[2023-06-26 13:33] LABS: Alanine Aminotransferase 36 U/L (0-40); Albumin Level 4.1 g/dL (3.5-5.0); Alkaline Phosphatase 172 U/L (39-117); Anion Gap 13 (12-20); Aspartate Amino Transferase 35 U/L (5-37); Bilirubin Total 0.6 mg/dL (0.0-1.0); Blood Urea Nitrogen 17 mg/dL (9-16); Calcium 9.7 mg/dL (8.4-10.2); Carbon Dioxide 28 mmol/L (22-29); Chloride 103 mmol/L (96-108); Cholesterol 155 mg/dL (<200); Estimated Glomerular Filt Rate > 60; Glucose Fasting 128 mg/dL (60-99); HDL Cholesterol 44 mg/dL (>40); LDL Cholesterol Calculated 90 mg/dL (<100); Sodium 140 mmol/L (135-145); Total Protein 8.3 g/dL (6.5-8.0); Triglycerides 106 mg/dL (<150)
== END 2023-06-26 11:26 | disposition home or self-care (01) ==
LOC: HO.10HDL 11:25
PROVIDERS: Visit Provider Internal Medicine
DX: I48.91 Unspecified atrial fibrillation (principal); E78.00 Pure hypercholesterolemia, unspecified; I12.9 Hypertensive chronic kidney disease with stage 1 through stage 4 chronic kidney disease, or unspecified chronic kidney disease; E11.22 Type 2 diabetes mellitus with diabetic chronic kidney disease; N18.9 Chronic kidney disease, unspecified
CPT/HCPCS: 36415; 80053; 80061; 83036; 85025

== ENCOUNTER 2023-08-17 19:46 | Inpatient (IN) | payer MEDICARE, SELFPAY ==
[2023-08-17] VITALS (9 sets, daily range): BP systolic 142–176; BP diastolic 67–93; PULSE 62–108; RESP 12–21; TEMP 36.8–39.4; O2SAT 94–98; BMI 24.5
--- NOTE | ~2023-08-17 | CT_ITS ---
EXAMINATION: CT ABDOMEN AND PELVIS WITH CONTRAST CLINICAL INFORMATION: Pain. Concern for pyelonephritis COMPARISON: None available. TECHNIQUE: Multidetector volumetric images were obtained from the superior aspect of the liver through the pubic symphysis following administration 85 mL of Omnipaque 350 intravenous contrast. Sagittal and coronal reformatted images were obtained on the technologist's workstation. Oral contrast: No This CT examination was performed using dose optimization techniques as appropriate, variously including the following: *Automated exposure control *Adjustment of mA and/or kV according to patient size (this includes techniques or standardized protocols for targeted exams where dose is matched to indication/reason for exam; i.e. extremities or head) *Use of iterative reconstruction technique DLP: 952 mGy-cm FINDINGS: LUNG BASES: The visualized lung bases are unremarkable. LIVER, GALLBLADDER, AND BILIARY TREE: The liver is irregular in contour with a small right lobe and a large left lobe. Gallbladder is not seen. PANCREAS: Unremarkable. SPLEEN: Unremarkable. ADRENAL GLANDS: Unremarkable. KIDNEYS AND URETERS: The kidneys are normal in size, shape, and attenuation. No hydronephrosis, hydroureter, or calculi seen. No perinephric stranding. BLADDER: Unremarkable. GASTROINTESTINAL TRACT: Diverticula of the distal descending and proximal sigmoid colon without evidence for acute diverticulitis. The appendix is visualized and is within normal limits. ABDOMINAL WALL: No significant hernia is appreciated. LYMPH NODES: Normal. VASCULAR: There is atherosclerotic plaque of the abdominal aorta and proximal branches. PELVIC VISCERA: Unremarkable. OSSEOUS STRUCTURES: Unremarkable. CT/CT abdomen pelvis w IV con IMPRESSION: Irregular liver consistent with hepatocellular disease/cirrhosis. 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 No acute intra-abdominal process identified. Fleischner guidelines were followed.
--- NOTE | ~2023-08-17 | CT_ITS ---
EXAMINATION: CT HEAD WITHOUT CONTRAST CLINICAL INFORMATION: Altered mental status. COMPARISON: None available. TECHNIQUE: Contiguous axial imaging was performed from the skull base to vertex without intravenous administration of contrast. This CT examination was performed using dose optimization techniques as appropriate, variously including the following: *Automated exposure control *Adjustment of mA and/or kV according to patient size (this includes techniques or standardized protocols for targeted exams where dose is matched to indication/reason for exam; i.e. extremities or head) *Use of iterative reconstruction technique DLP: 667. mGy-cm FINDINGS: There is cerebral volume loss with prominence of the lateral and the third ventricles. The cortical sulci are widened appropriately. The fourth ventricle and basal cisterns are normally outlined. There is extensive bilateral periventricular and central white matter diminished attenuation. Old bilateral thalamic and right basal ganglia lacunar infarcts are noted. There is an old left occipital infarct. There are old small right cerebellar infarcts. There is no acute territorial defect, hemorrhage or midline shift. The extra-axial spaces are unremarkable. Calvarium: Intact. Maxillofacial sinuses and mastoids: There is a lobulated dense sphenoid sinus opacity on the right. The remaining visualized maxilla facial sinuses and mastoids are clear. CT/CT head/brain wo IV con IMPRESSION: Cerebral volume loss and extensive bilateral periventricular and central white matter diminished attenuation which is nonspecific but likely to represent microvascular disease. 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 Right sphenoid sinus opacity which appears to be chronic.
--- NOTE | ~2023-08-17 | XR_ITS ---
EXAMINATION: XR CHEST CLINICAL INFORMATION: Weakness. COMPARISON: 04/03/2019. TECHNIQUE: Frontal view of the chest was obtained. FINDINGS: The cardiomediastinal silhouette is stable. There has been a previous median sternotomy. There is no focal lung consolidation or pleural effusion. The bony structures and soft tissues are unremarkable. XR/XR chest 1V IMPRESSION: No active cardiopulmonary disease.
--- NOTE | 2023-08-17 19:59 | ECG_ITS ---
Test Reason : afib Blood Pressure : / mmHG Vent. Rate : 087 BPM Atrial Rate : 000 BPM P-R Int : 000 ms QRS Dur : 084 ms QT Int : 380 ms P-R-T Axes : 000 075 080 degrees QTc Int : 457 ms Atrial fibrillation Nonspecific ST abnormality Abnormal ECG When compared with ECG of 03-APR-2019 21:15, Atrial fibrillation has replaced Sinus rhythm QT has shortened Referred By: Beto Chaidez Electronically Signed By:DENI STARR MD
--- NOTE | 2023-08-17 20:08 | PC.NURSE ---
pt kemal from [facility] assisted living. staff and pt daughter at [facility] report pt is increased altered mental status and that his bathroom smells like uti . pt daughter reports pt straight caths himself on a timed regimen due to a previous stroke and pt unable to urinate on his own. upon arrival to the ED pt was able to state where he was, who he was and where he was coming from. pt skin felt hot to touch, pt had a rectal temp of 102.9. pt tachy on tele 118-115. sepsis alert called at at this time, proider aware and at bedside.
--- NOTE | 2023-08-17 20:16 | ED.GENADULT ---
HPI - General Adult General Chief complaint: Altered Mental Status Stated complaint: dementia @baseline, increased conf. uti? Time Seen by Provider: 08/17/23 19:49 Source: patient, RN notes reviewed and old records reviewed Mode of arrival: EMS Limitations: other ( patient is a very poor historian) History of Present Illness HPI narrative: 82-year-old male presents for evaluation from assisted living facility due to altered mental status. Per EMS the patient straight cath himself multiple times per day. He has had decreased mentation per facility staff the patient himself denies any complaints including fevers, chills, abdominal pain he also denies any cough nausea vomiting, diarrhea patient arrives febrile Related Data Home Medications Medication Instructions Recorded Confirmed amlodipine 2.5 mg tablet 2.5 mg PO DAILY 03/25/21 08/17/23 furosemide 20 mg tablet (Lasix) 20 mg PO MOWEFR 03/25/21 08/17/23 magnesium oxide 400 mg PO BEDTIME 03/25/21 08/17/23 metoprolol tartrate 25 mg tablet 25 mg PO BID 03/25/21 08/17/23 multivitamin 1 tab PO DAILY 03/25/21 08/17/23 pantoprazole 40 mg tablet,delayed 40 mg PO DAILY 03/25/21 08/17/23 release polyethylene glycol 3350 17 gram 17 g PO DAILY PRN Constipation 03/25/21 08/17/23 oral powder packet (Miralax) rivaroxaban 15 mg tablet (Xarelto) 15 mg PO QPM 03/25/21 08/17/23 atorvastatin 40 mg tablet 40 mg PO DAILY 10/07/22 08/17/23 cholecalciferol (vitamin D3) 25 25 mcg PO MOWEFR 08/17/23 08/17/23 mcg (1,000 unit) tablet docusate sodium 100 mg tablet 100 mg PO DAILY PRN Constipation 08/17/23 08/17/23 ferrous sulfate 325 mg (65 mg 325 mg PO BID 08/17/23 08/17/23 iron) tablet melatonin 3 mg tablet 3 mg PO BEDTIME PRN Insomnia 08/17/23 08/17/23 simethicone 80 mg chewable tablet 80 mg PO BID 08/17/23 08/17/23 vit C 250 mg-vit E 90 mg-zinc 40 1 tab PO BID 08/17/23 08/17/23 mg-copper 1 [id number] capsule (PreserVision AREDS-2) Allergies Allergy/AdvReac Type Severity Reaction Status Date / Time No Known Allergies Allergy Verified 08/17/23 20:00 [No Known Allergies*] Review of Systems Constitutional: Constitutional: Denies chills, Denies fever(s) and Denies headache(s) ENT: Denies headache(s) and Denies sore throat Cardiovascular: Cardiovascular: Denies chest pain and Denies dyspnea Respiratory: Respiratory: Denies cough and Denies dyspnea Gastrointestinal: Gastrointestinal: Denies abdominal pain, Denies nausea and Denies vomiting Genitourinary: Comments: Patient straight caths at baseline Musculoskeletal: Musculoskeletal: Denies back pain Integumentary/Breasts: Skin/Breast: Denies rash Neurologic: Denies headache(s) COUNTS INCLUDE 234 BEDS AT THE [facility] Past Medical History Medical History Prostate cancer Pre-diabetes GI bleed GERD (gastroesophageal reflux disease) History of urinary retention CVA (cerebral vascular accident) On beta toña at home On anticoagulant therapy Arrhythmia Aortic valvular disease CAD (coronary artery disease) HTN (hypertension) COVID-19 vaccine administered Surgical History H/O colonoscopy Hx of cholecystectomy Hx of aortic valve replacement Social History Social History Housing Other:: [facility] Are you a primary primary care nurse to a significant other at home: No Do you presently have visiting nurse or other home services: No Alcohol intake: former Patient Tobacco Use Status: Former Tobacco user Quit Date: age 30's Tobacco use type: Cigarette Smoked in Last 30 Days: No Use of substances other than those prescribed or required for medical reasons: No Advance Directives: No Advance Directives Information Provided: No Nutrition Risks: No Nutritional Risk Physical Exam ED Vital Signs: Vital Signs - 24 hr 08/17/23 19:48 08/17/23 20:05 08/17/23 20:08 Temperature 102.9 F H Pulse Rate 108 H Respiratory Rate 20 Blood Pressure 176/93 H Pulse Oximetry 98 98 Oxygen Delivery Method Room Air Room Air 08/17/23 20:56 08/17/23 21:10 Temperature Pulse Rate 93 84 Respiratory Rate 12 Blood Pressure 163/73 H 166/82 H Pulse Oximetry 95 94 Oxygen Delivery Method Room Air BMI result Body Mass Index 24.5 Const General: healthy appearing, comfortable, no acute distress, alert and awake Nutritional Appearance: well nourished Orientation/consciousness: patient oriented x3 HENMT Head: Yes normocephalic and Yes atraumatic Eyes Eyelids: Yes eyelids normal Conjunctivae: conjunctivae normal Sclerae: sclerae normal Corneas: corneas normal Pupils: Equal, round and reactive pupils present EOM: EOMs intact bilaterally Neck Neck: Yes full ROM Resp Effort & Inspection: normal respiratory effort, able to speak in complete sentences, no audible wheezes and not labored Auscultation: clear to auscultation bilaterally GI Inspection: No distended Palpation (GI): Soft to palpation, not firm, nontender, no guarding and not rigid Skin General skin exam: elasticity normal Neuro General: patient oriented x3 Cranial nerves: Yes Equal, round and reactive pupils present and Yes Bilaterally intact EOM present Cognition (Neuro): normal cognition Extrem Other: Moving all extremities well without any obvious deformities Medications Administered Generic Name Dose Route Start Last Admin Trade Name Freq PRN Reason Stop Dose Admin Sodium Chloride 3 ml 08/18/23 00:00 08/18/23 01:34 0.9 % Sodium Chloride Flush 3 Ml Syringe IVFLUSH Not Given QSHIFT SHAYE Discontinued Medications Generic Name Dose Route Start Last Admin Trade Name Freq PRN Reason Stop Dose Admin Acetaminophen 975 mg 08/17/23 20:15 08/17/23 20:37 Acetaminophen 325 Mg Tablet PO 08/17/23 20:16 975 mg ONCE ONE Administration Ceftriaxone Sodium 1 gm/ 50 mls @ 100 mls/hr 08/17/23 20:15 08/17/23 21:48 Sodium Chloride IV 08/17/23 20:44 Infused ONCE ONE Infusion Sodium Chloride 1,000 mls @ 999 mls/hr 08/17/23 21:15 08/17/23 22:43 Ns IV 08/17/23 22:15 Infused .Q1H1M SHAYE Infusion Iohexol 100 ml 08/17/23 21:38 08/17/23 21:39 Iohexol 350 Mg/Ml 100 Ml Infus..Btl IV 08/17/23 21:39 85 ml ONCE ONE Administration Medical Decision Making Medical Decision Making [facility] Narrative: patient arrives with no complaints. He is febrile and reports from staff indicate that he has foul-smelling urine. The patient straight cath, but is unclear why. He met she reported that he straight cath and he also states that he straight caths. given the significant fever, heart rate over 90 and suspected infection, he meets sepsis criteria. Sepsis alert was called. Will treat with ceftriaxone as the most likely cause of his sepsis is UTI given that he straight caths and has reports of foul-smelling urine. A broad workup will also be initiated Differential Diagnosis Differential Diagnoses: The differential diagnosis associated with the presentation includes UTI Sepsis Cellulitis Pneumonia Bronchitis Viral syndrome Admission/Observation Consideration of admission/observation: Escalation of care including admission/observation considered patient had fever, elevated white blood cell count and her over 90, this meets SIRS criteria and therefore sepsis with evidence of infection Consult Healthcare Provider Management of the patient was discussed with: Hospitalist Lab Data [facility] Lab Attestation statement: I reviewed the patient's lab results. mild leukocytosis 11.6. No significant electrolyte abnormalities. Lactate within normal limits. 08/17/23 20:29 08/17/23 20:29 Labs: Lab Results 08/17/23 08/17/23 08/17/23 Range/Units 20:28 20:29 20:31 WBC 11.6 H (4.8-10.8) X10*3/uL RBC 4.78 (4.60-5.80) X10*6/uL Hgb 14.7 (14.0-18.0) g/dl Hct 43.2 (42.0-52.0) % MCV 90.4 (80.0-98.0) fL MCH 30.8 (27.0-33.0) pg MCHC 34.0 (31.0-36.0) g/dl RDW 13.8 (11.0-16.0) % Plt Count 152 L (160-400) X10*3/uL MPV 10.7 (9.4-12.4) fL Immature Gran % (Auto) 0.4 (0.0-0.4) % Neut % (Auto) 83.3 H (45-73) % Lymph % (Auto) 8.5 L (20-40) % [place] % (Auto) 7.4 (2-11) % Eos % (Auto) 0.1 (0-4) % Baso % (Auto) 0.3 (0-2) % Lymph # (Auto) 1.0 L (1.2-4.9) X10*3/uL [place] # (Auto) 0.9 (0.1-1.2) X10*3/uL Eos # (Auto) 0.0 (0.0-0.4) X10*3/uL Baso # (Auto) 0.0 (0.0-0.2) X10*3/uL Abs Immat Gran (auto) 0.05 H (0.00-0.03) X10*3/uL Absolute Neuts (auto) 9.7 H (2.0-8.3) x10*3/uL Absolute Nucleated RBC 0.000 (0.0-0.012) X10*3/uL Nucleated RBC % (auto) 0.0 (0.0-0.2) /100WBC PT 27.7 H (11.1-13.3) SEC INR 2.3 H (0.9-1.1) APTT 47.3 H (26.0-36.4) SEC Sodium 135 (135-145) mmol/L Potassium 4.3 (3.3-5.1) mmol/L Chloride 101 (96-108) mmol/L Carbon Dioxide 23 (22-29) mmol/L Anion Gap 15 (12-20) BUN 19 H (9-16) mg/dL Creatinine 0.98 (0.5-1.4) mg/dL Estim Creat Clear Calc 57.9 Estimated GFR > 60 Random Glucose 142 H (60-115) mg/dL Lactic Acid 1.6 (0.5-2.0) mmol/L Calcium 9.6 (8.4-10.2) mg/dL Total Bilirubin 0.6 (0.0-1.0) mg/dL AST 49 H (5-37) U/L ALT 42 H (0-40) U/L Alkaline Phosphatase 173 H (39-117) U/L Troponin I High Sens 19.9 (<3.5-35.0) ng/L Total Protein 8.6 H (6.5-8.0) g/dL Albumin 4.2 (3.5-5.0) g/dL Lipase 26 (8-78) U/L Urine Color Yellow Urine Appearance Cloudy Urine pH 7.5 (5.0-9.0) Ur Specific [place] 1.020 (1.005-1.025) Urine Protein 30 (1+) H (Neg-Trace) mg/dL Urine Glucose (UA) Negative (Negative) mg/dL Urine Ketones Negative (Negative) mg/dL Urine Blood Negative (Negative) Urine Nitrite Negative (Negative) Ur Leukocyte Esterase Trace H (Negative) Urine RBC 0-2 (0-2) /HPF Urine WBC 0-5 (0-5) /HPF Ur Squamous Epith Cells 0-2 (0-2) /HPF Urine Bacteria 4+ (None Seen) Hyaline Casts 0-2 (0-2) /LPF Influenza Type A (PCR) NEGATIVE (Negative) Influenza Type B (PCR) NEGATIVE (Negative) RSV RNA Qual (PCR) NEGATIVE (Negative) SARS-CoV-2 RNA (RT-PCR) POSITIVE A (Negative) Discharge Plan Discharge Clinical Impression: COVID-19, Sepsis Patient Disposition: Admitted As Inpatient
--- NOTE | 2023-08-17 20:20 | PC.NURSE ---
this rn straight cath pt at this time with ashley BARCLAY. pt tolerated procedure well, voided 300ml yellow urine. urine sample obtained and sent to lab.
[2023-08-17] MEDS: cefTRIAXone sodium 1 GM in 0.9 % Sodium Chloride 50 ML IV (20:35)
--- NOTE | 2023-08-17 20:35 | PC.NURSE ---
first dose of antibiotics hung at this time.
[2023-08-17] MEDS: Acetaminophen 325 MG TABLET 975 MG PO (20:37)
[2023-08-17 20:42] LABS: MANUAL DIFF FLAG NO
[2023-08-17 20:44] LABS: Basophils Percent Auto 0.3 % (0-2); Eosinophils Percent Auto 0.1 % (0-4); Hematocrit 43.2 % (42.0-52.0); Hemoglobin 14.7 g/dl (14.0-18.0); Imm Gran Abs Auto 0.05 X10*3/uL (0.00-0.03); Imm Gran Pct Auto 0.4 % (0.0-0.4); Lymphocytes Percent Auto 8.5 % (20-40); Mean Corpuscular Hemoglobin 30.8 pg (27.0-33.0); Mean Corpuscular Volume 90.4 fL (80.0-98.0); Mean Platelet Volume 10.7 fL (9.4-12.4); Monocytes Absolute Auto 0.9 X10*3/uL (0.1-1.2); Monocytes Percent Auto 7.4 % (2-11); Neutrophils Absolute Auto 9.7 x10*3/uL (2.0-8.3); Neutrophils Percent Auto 83.3 % (45-73); Platelet Count 152 X10*3/uL (160-400); Red Blood Count 4.78 X10*6/uL (4.60-5.80); Red Cell Distribution Width 13.8 % (11.0-16.0); White Blood Count 11.6 X10*3/uL (4.8-10.8)
[2023-08-17 20:45] LABS: Appearance Urine Cloudy; Color Urine Yellow; Glucose Urine UA Negative (Negative); Leukocyte Esterase Urine Trace (Negative); Nitrite Urine Negative (Negative); PH 7.5 (5.0-9.0); UMIC TRIGGER UACC YES; Urine Blood Negative (Negative); Urine Ketones Negative (Negative); Urine Protein 30 (1+) mg/dL (Neg-Trace)
[2023-08-17 20:51] LABS: INTERNATIONAL NORM RATIO 2.3 (0.9-1.1); Prothrombin Time 27.7 SEC (11.1-13.3)
[2023-08-17 20:53] LABS: Bacteria Urine 4+ (None Seen); Hyaline Casts Urine 0-2 /LPF (0-2); RBC Urine 0-2 /HPF (0-2); Squamous Epithelial Cell Urine 0-2 /HPF (0-2); WBC Urine 0-5 /HPF (0-5)
[2023-08-17 20:53] LABS: Partial Thromboplastin Time 47.3 SEC (26.0-36.4)
[2023-08-17 20:57] LABS: Lactic Acid 1.6 mmol/L (0.5-2.0)
[2023-08-17 21:01] LABS: Alanine Aminotransferase 42 U/L (0-40); Albumin Level 4.2 g/dL (3.5-5.0); Alkaline Phosphatase 173 U/L (39-117); Anion Gap 15 (12-20); Aspartate Amino Transferase 49 U/L (5-37); Bilirubin Total 0.6 mg/dL (0.0-1.0); Blood Urea Nitrogen 19 mg/dL (9-16); Calcium 9.6 mg/dL (8.4-10.2); Carbon Dioxide 23 mmol/L (22-29); Chloride 101 mmol/L (96-108); Creatinine Clr Calc Pharmacy 57.9; Estimated Glomerular Filt Rate > 60; Glucose Random 142 mg/dL (60-115); Lipase 26 U/L (8-78); Potassium 4.3 mmol/L (3.3-5.1); Sodium 135 mmol/L (135-145); Total Protein 8.6 g/dL (6.5-8.0)
[2023-08-17 21:08] LABS: Troponin-I High Sensitivity 19.9 ng/L (<3.5-35.0)
--- NOTE | 2023-08-17 21:22 | P.HPHOSP_ITS ---
History of Present Illness Date of Service: 08/17/23 Chief Complaint: Altered mentation This is a 82-year-old male with pertinent history of mood disorder, essential hypertension, gastroesophageal reflux disease, atrial fibrillation on Xarelto, mixed hyperlipidemia, liver cirrhosis who was brought to the emergency department for evaluation of altered mentation. Unable to obtain history from the patient. History obtained from ER provider and chart review. Daughter at bedside states that patient was found to be altered and hence she decided to bring him to the ER. Patient is hard of hearing at baseline but when she spoke to him earlier, he was confused and disoriented. Patient is without complaints at the time of my evaluation. He was noted to be febrile in the ER and tested positive for COVID-19. Unable to obtain review of systems. Patient self caths himself 3 times a day Review of Systems 2 Review of Systems: Yes Unobtainable due to mental status PMFSH Medical History Prostate cancer Pre-diabetes GI bleed GERD (gastroesophageal reflux disease) History of urinary retention CVA (cerebral vascular accident) On beta toña at home On anticoagulant therapy Arrhythmia Aortic valvular disease CAD (coronary artery disease) HTN (hypertension) COVID-19 vaccine administered Surgical History H/O colonoscopy Hx of cholecystectomy Hx of aortic valve replacement Social History Housing Other:: [facility] Are you a primary care clinician to a significant other at home: No Do you presently have visiting nurse or other home services: No Patient Tobacco Use Status: Former Tobacco user Quit Date: age 30's Tobacco use type: Cigarette Advance Directives: No Advance Directives Information Provided: No Meds Allergies Allergy/AdvReac Type Severity Reaction Status Date / Time No Known Allergies Allergy Verified 08/17/23 20:00 [No Known Allergies*] Active Medications: Current Medications Sodium Chloride (Ns) 1,000 mls @ 999 mls/hr IV .Q1H1M SHAYE Stop: 08/17/23 22:15 Home Medications Medication Instructions Recorded Confirmed Last Taken Type amlodipine 2.5 mg tablet 2.5 mg PO DAILY 03/25/21 08/17/2304/18/21 History furosemide 20 mg tablet (Lasix) 20 mg PO MOWEFR 03/25/21 08/17/23 04/18/21 History magnesium oxide 400 mg PO BEDTIME 03/25/21 08/17/23 04/18/21 History metoprolol tartrate 25 mg tablet 25 mg PO BID 03/25/21 08/17/23 04/18/21 History multivitamin 1 tab PO DAILY 03/25/21 08/17/23 04/18/21 History pantoprazole 40 mg tablet,delayed 40 mg PO DAILY 03/25/21 08/17/23 04/18/21 History release polyethylene glycol 3350 17 gram 17 g PO DAILY PRN Constipation 03/25/21 08/17/23 04/18/21 History oral powder packet (Miralax) rivaroxaban 15 mg tablet (Xarelto) 15 mg PO QPM 03/25/21 08/17/23 04/18/21 History atorvastatin 40 mg tablet 40 mg PO DAILY 10/07/22 08/17/23 Unknown History cholecalciferol (vitamin D3) 25 25 mcg PO MOWEFR 08/17/23 08/17/23 Unknown History mcg (1,000 unit) tablet docusate sodium 100 mg tablet 100 mg PO DAILY PRN Constipation 08/17/23 08/17/23 Unknown History ferrous sulfate 325 mg (65 mg 325 mg PO BID 08/17/23 08/17/23 Unknown History iron) tablet melatonin 3 mg tablet 3 mg PO BEDTIME PRN Insomnia 08/17/23 08/17/23 Unknown History simethicone 80 mg chewable tablet 80 mg PO BID 08/17/23 08/17/23 Unknown History vit C 250 mg-vit E 90 mg-zinc 40 1 tab PO BID 08/17/23 08/17/23 Unknown History mg-copper 1 [id number]-gjafff capsule (PreserVision AREDS-2) Physical Exam 2 Vital Signs and Narrative: Vital Signs: Last Vital Signs Temp 102.9 F H 08/17/23 20:05 Pulse 84 08/17/23 21:10 Resp 12 08/17/23 20:56 BP 166/82 H 08/17/23 21:10 Pulse Ox 94 08/17/23 21:10 O2 Del Method Room Air 08/17/23 20:56 BMI result Body Mass Index 24.5 Elderly male, hard of hearing lying in bed in no distress Neck supple, no JVD Regular rate and rhythm, S1-S2 heard Regular breath sounds bilaterally, no wheezing or crackles appreciated Abdomen soft nontender, no guarding, no rigidity Patient is awake, alert and oriented to self, disoriented to place, time and person ; no focal motor deficit Psych: Normal mood No pedal edema Results Labs 08/17/23 20:29 08/17/23 20:29 Labs: Laboratory Results - last 24 hr 08/17/23 08/17/23 08/17/23 20:28 20:29 20:31 MCV 90.4 MCH 30.8 MCHC 34.0 RDW 13.8 Plt Count 152 L MPV 10.7 Immature Gran % (Auto) 0.4 Neut % (Auto) 83.3 H Lymph % (Auto) 8.5 L [place] % (Auto) 7.4 Eos % (Auto) 0.1 Baso % (Auto) 0.3 Lymph # (Auto) 1.0 L [place] # (Auto) 0.9 Eos # (Auto) 0.0 Baso # (Auto) 0.0 Abs Immat Gran (auto) 0.05 H Absolute Neuts (auto) 9.7 H Absolute Nucleated RBC 0.000 Nucleated RBC % (auto) 0.0 PT 27.7 H INR 2.3 H APTT 47.3 H Anion Gap 15 Estim Creat Clear Calc 57.9 Estimated GFR > 60 Random Glucose 142 H Lactic Acid 1.6 Calcium 9.6 Total Bilirubin 0.6 AST 49 H ALT 42 H Alkaline Phosphatase 173 H Total Protein 8.6 H Albumin 4.2 Lipase 26 Urine Color Yellow Urine Appearance Cloudy Urine pH 7.5 Ur Specific [place] 1.020 Urine Protein 30 (1+) H Urine Glucose (UA) Negative Urine Ketones Negative Urine Blood Negative Urine Nitrite Negative Ur Leukocyte Esterase Trace H Urine RBC 0-2 Urine WBC 0-5 Ur Squamous Epith Cells 0-2 Urine Bacteria 4+ Hyaline Casts 0-2 Assessment and Plan (1) Acute metabolic encephalopathy: Status: Acute (2) COVID-19 virus infection: Status: Acute Plan This is a 82-year-old male with pertinent history of mood disorder, essential hypertension, gastroesophageal reflux disease, atrial fibrillation on Xarelto, mixed hyperlipidemia, liver cirrhosis who was brought to the emergency department for evaluation of altered mentation. #. Sepsis and acute metabolic encephalopathy due to COVID-19 infection: Resuscitated with IV crystalloids in the ER. Blood culture and lactic acid obtained. Defer Decadron as patient without hypoxemia. Defer antibiotics as no signs of bacterial infection. Monitor mentation #. Essential hypertension: Hold antihypertensives in the setting of sepsis. Resume as appropriate #. Mood disorder: Continue home mood stabilizers #. Atrial fibrillation: Rate controlled in the ER. On Xarelto #. Bladder incontinence: Patient self catheterizes 3 times a day. UA without WBC, noted bacteria, likely colonization. No infection Med rec pending DVT prophylaxis: Xarelto Admit as inpatient and will require two night minimum hospital stay for close monitoring of mentation and awaiting blood cultures Time Spent With Patient Time: Total time managing care of this patient today ____ minutes. Quality Stroke Does the patient have a stroke diagnosis?: No VTE Prior VTE?: No VTE Risk Level:: Medical - moderate - high VTE Device Contraindication: Treatment Not Indicated VTE Drug Contraindication: N/A - Med Ordered
--- NOTE | 2023-08-17 21:32 | PHA.MEDREC ---
Pharmacy Consult ? Medication Reconciliation Pharmacy has completed the medication reconciliation. Patient's daughter had med list that matched claim history. Did confirmed with patient daughter that he is taking lasix and bit d3 only on [employer]. Kasia Novoa, PharmD
[2023-08-17] MEDS: iohexoL 350 MG/ML 100 ML INFUS..BTL IV (21:39)
[2023-08-17] MEDS: 0.9 % Sodium Chloride 1,000 ML 999 ML IV (21:40)
--- NOTE | 2023-08-17 21:40 | PC.NURSE ---
one liter IV fluids hung at this time. per provider Michele, pt will only receive one liter d/t lactic within range of 1.6.
[2023-08-17 22:14] LABS: Influenza A PCR NEGATIVE (Negative); Influenza B PCR NEGATIVE (Negative); Resp Syncy Virus RNA Qual PCR NEGATIVE (Negative); SARS COV2 PCR INHOUSE POSITIVE (Negative)
--- NOTE | 2023-08-17 23:15 | PC.NURSE ---
provider at bedside discussing pt care. pt daughter at bedside at this time.
--- NOTE | 2023-08-17 23:22 | PC.NURSE ---
this rn straight cath pt at this time, with ashley gupta. pt voided 400ml of yellow urine and tolerated procedure well.
[2023-08-18] VITALS (14 sets, daily range): BP systolic 132–193; BP diastolic 74–111; PULSE 80–158; RESP 16–32; TEMP 36.6–37.2; O2SAT 89–98; BMI 24.5
--- NOTE | 2023-08-18 02:38 | PC.NURSE ---
pt sleeping comfortably, respirations even and unlabored.
--- NOTE | 2023-08-18 03:39 | PC.NURSE ---
this rn straight cath pt per request, 200ml yellow urine voided. pt tolerated procedure well.
[2023-08-18 05:13] LABS: MANUAL DIFF FLAG NO
[2023-08-18 05:16] LABS: Basophils Percent Auto 0.2 % (0-2); Eosinophils Percent Auto 0.2 % (0-4); Hematocrit 41.4 % (42.0-52.0); Hemoglobin 13.9 g/dl (14.0-18.0); Imm Gran Abs Auto 0.02 X10*3/uL (0.00-0.03); Imm Gran Pct Auto 0.2 % (0.0-0.4); Lymphocytes Absolute Auto 0.8 X10*3/uL (1.2-4.9); Lymphocytes Percent Auto 8.9 % (20-40); Mean Corpuscular HGB Conc 33.6 g/dl (31.0-36.0); Mean Corpuscular Hemoglobin 30.6 pg (27.0-33.0); Mean Corpuscular Volume 91.2 fL (80.0-98.0); Monocytes Absolute Auto 0.8 X10*3/uL (0.1-1.2); Monocytes Percent Auto 9.6 % (2-11); Neutrophils Absolute Auto 6.8 x10*3/uL (2.0-8.3); Neutrophils Percent Auto 80.9 % (45-73); Platelet Count 125 X10*3/uL (160-400); Red Blood Count 4.54 X10*6/uL (4.60-5.80); Red Cell Distribution Width 13.9 % (11.0-16.0); White Blood Count 8.4 X10*3/uL (4.8-10.8)
[2023-08-18 05:27] LABS: Anion Gap 14 (12-20); Blood Urea Nitrogen 15 mg/dL (9-16); Calcium 9.3 mg/dL (8.4-10.2); Carbon Dioxide 24 mmol/L (22-29); Chloride 102 mmol/L (96-108); Creatinine Clr Calc Pharmacy 65.2; Estimated Glomerular Filt Rate > 60; Glucose Random 128 mg/dL (60-115); Potassium 3.9 mmol/L (3.3-5.1); Sodium 136 mmol/L (135-145)
--- NOTE | 2023-08-18 07:42 | PC.NURSE ---
patient resting in bed, appears to be in no distress, respirations equal and unlabored.
[2023-08-18] MEDS: 0.9 % Sodium Chloride Flush 3 ML SYRINGE IVFLUSH ×2 (07:44→20:50)
[2023-08-18] MEDS: Metoprolol Tartrate 5 MG/5 ML VIAL IVPUSH (09:01)
--- NOTE | 2023-08-18 09:06 | PC.NURSE ---
patient in afib 150s-160s on the monitor, reached out to attending doctor for rate control medication, patuient medicated per MAR with new orders, patient heart rate is now between 110s-120s. patient shows no signs of distress.
[2023-08-18] MEDS: Multivitamin TABLET 1 TAB PO (09:32)
[2023-08-18] MEDS: Metoprolol Tartrate 25 MG TABLET PO ×2 (09:32→20:48)
[2023-08-18] MEDS: Ferrous Sulfate 324 MG TABLET.DR PO ×2 (09:32→20:48)
[2023-08-18] MEDS: Atorvastatin Calcium 40 MG TABLET PO (09:32)
[2023-08-18] MEDS: Simethicone 80 MG TAB.CHEW PO ×2 (09:32→20:48)
[2023-08-18] MEDS: Omeprazole 20 MG CAPSULE.DR PO (09:39)
--- NOTE | 2023-08-18 09:46 | PC.NURSE ---
patient placed on 2l o2 via nc due to desat down to the high 80s while speaking. patient shows no signs of distress, respirations equal and unlabored
--- NOTE | 2023-08-18 10:17 | P.PNIM_ITS ---
Subjective Subjective Date of Service: 08/18/23 Interval History: More alert but remains confused O2 dropping to mid 80s upon speaking No fever or chills Review of Systems Review of Systems: Yes Unobtainable due to mental status Physical Exam 2 Vital Signs: Vital Signs: Last Vital Signs Temp 97.8 F 08/18/23 07:38 Pulse 112 H 08/18/23 09:34 Resp 19 08/18/23 09:34 BP 164/84 H 08/18/23 09:34 Pulse Ox 95 08/18/23 09:34 O2 Del Method Nasal Cannula 08/18/23 09:34 O2 Flow Rate 2 08/18/23 09:34 BMI result Body Mass Index 24.5 Const: Other: Constitutional : Awake, lethargic, weak and frail Neck : Normal inspection, Supple Cardiovascular : irregular irregular, no JVP, no lower extremity edema Respiratory : good bilateral air entry, basal crackles, no wheezes , Hypoxia of 86-88% on RA Gastrointestinal: soft, lax, Normal bowel sounds, Non tender Skin : Warm, Dry Neurological : Alert & disoriented x3, No focal deficit Objective Data Active Medications Acetaminophen (Acetaminophen 325 Mg Tablet) 650 mg PO Q6H PRN PRN Reason: Pain, Mild (Pain Scale 1-3) Acetaminophen (Acetaminophen Supp 650 Mg Supp.Rect) 650 mg [place] Q6H PRN PRN Reason: Pain, Mild (Pain Scale 1-3) Atorvastatin Calcium (Atorvastatin Calcium 40 Mg Tablet) 40 mg PO DAILY [facility] Last Admin: 08/18/23 09:32 Dose: 40 mg Documented By: CHARU Docusate Sodium (Docusate Sodium 100 Mg Capsule) 100 mg PO DAILY PRN PRN Reason: Constipation Ferrous Sulfate (Ferrous Sulfate 324 Mg Tablet.Dr) 324 mg PO BID [facility] Last Admin: 08/18/23 09:32 Dose: 324 mg Documented By: CHARU Magnesium Oxide (Magnesium Oxide 400 Mg Tablet) 400 mg PO BEDTIME [facility] Melatonin (Melatonin 3 Mg Tablet) 6 mg PO BEDTIME PRN PRN Reason: Insomnia Melatonin (Melatonin 3 Mg Tablet) 3 mg PO BEDTIME PRN PRN Reason: Insomnia Metoprolol Tartrate (Metoprolol Tartrate 25 Mg Tablet) 25 mg PO BID [facility]; Protocol Last Admin: 08/18/23 09:52 Dose: Not Given Documented By: CHARU Non-Admin Reason: Duplicate Order Multivitamins/Vitamin C (Multivitamin Tablet) 1 tab PO DAILY [facility] Last Admin: 08/18/23 09:32 Dose: 1 tab Documented By: CHARU Omeprazole (Omeprazole 20 Mg Capsule.Dr) 20 mg PO DAILY@0630 [facility] Last Admin: 08/18/23 09:39 Dose: 20 mg Documented By: CHARU Ondansetron HCl (Ondansetron Hcl 4 Mg/2 Ml Vial) 4 mg IVPUSH Q8H PRN PRN Reason: Nausea and Vomiting Polyethylene Glycol (Polyethylene Glycol 3350 17 Gm Powd.Pack) 17 gm PO DAILY PRN PRN Reason: Constipation Rivaroxaban (Rivaroxaban 15 Mg Tablet) 15 mg PO BEDTIME [facility] Simethicone (Simethicone 80 Mg Tab.Chew) 80 mg PO BID [facility] Last Admin: 08/18/23 09:32 Dose: 80 mg Documented By: CHARU Sodium Chloride (0.9 % Sodium Chloride Flush 3 Ml Syringe) 3 ml IVFLUSH QSHIFT [facility] Last Admin: 08/18/23 07:44 Dose: 3 ml Documented By: CHARU Labs 08/18/23 05:00 08/18/23 05:00 Labs: Laboratory Results - last 24 hr 08/17/23 08/17/23 08/17/23 20:28 20:29 20:31 MCV 90.4 MCH 30.8 MCHC 34.0 RDW 13.8 Plt Count 152 L MPV 10.7 Immature Gran % (Auto) 0.4 Neut % (Auto) 83.3 H Lymph % (Auto) 8.5 L [place] % (Auto) 7.4 Eos % (Auto) 0.1 Baso % (Auto) 0.3 Lymph # (Auto) 1.0 L [place] # (Auto) 0.9 Eos # (Auto) 0.0 Baso # (Auto) 0.0 Abs Immat Gran (auto) 0.05 H Absolute Neuts (auto) 9.7 H Absolute Nucleated RBC 0.000 Nucleated RBC % (auto) 0.0 PT 27.7 H INR 2.3 H APTT 47.3 H Anion Gap 15 Estim Creat Clear Calc 57.9 Estimated GFR > 60 Random Glucose 142 H Lactic Acid 1.6 Calcium 9.6 Total Bilirubin 0.6 AST 49 H ALT 42 H Alkaline Phosphatase 173 H Total Protein 8.6 H Albumin 4.2 Lipase 26 Urine Color Yellow Urine Appearance Cloudy Urine pH 7.5 Ur Specific [place] 1.020 Urine Protein 30 (1+) H Urine Glucose (UA) Negative Urine Ketones Negative Urine Blood Negative Urine Nitrite Negative Ur Leukocyte Esterase Trace H Urine RBC 0-2 Urine WBC 0-5 Ur Squamous Epith Cells 0-2 Urine Bacteria 4+ Hyaline Casts 0-2 Influenza Type A (PCR) NEGATIVE Influenza Type B (PCR) NEGATIVE RSV RNA Qual (PCR) NEGATIVE SARS-CoV-2 RNA (RT-PCR) POSITIVE A 08/18/23 05:00 MCV 91.2 MCH 30.6 MCHC 33.6 RDW 13.9 Plt Count 125 L MPV 10.0 Immature Gran % (Auto) 0.2 Neut % (Auto) 80.9 H Lymph % (Auto) 8.9 L [place] % (Auto) 9.6 Eos % (Auto) 0.2 Baso % (Auto) 0.2 Lymph # (Auto) 0.8 L [place] # (Auto) 0.8 Eos # (Auto) 0.0 Baso # (Auto) 0.0 Abs Immat Gran (auto) 0.02 Absolute Neuts (auto) 6.8 Absolute Nucleated RBC 0.000 Nucleated RBC % (auto) 0.0 PT INR APTT Anion Gap 14 Estim Creat Clear Calc 65.2 Estimated GFR > 60 Random Glucose 128 H Lactic Acid Calcium 9.3 Total Bilirubin AST ALT Alkaline Phosphatase Total Protein Albumin Lipase Urine Color Urine Appearance Urine pH Ur Specific [place] Urine Protein Urine Glucose (UA) Urine Ketones Urine Blood Urine Nitrite Ur Leukocyte Esterase Urine RBC Urine WBC Ur Squamous Epith Cells Urine Bacteria Hyaline Casts Influenza Type A (PCR) Influenza Type B (PCR) RSV RNA Qual (PCR) SARS-CoV-2 RNA (RT-PCR) Assessment and Plan (1) Sepsis: Status: Acute (2) COVID-19: Status: Acute (3) Acute metabolic encephalopathy: Status: Acute (4) Hypoxia: Status: Acute Plan This is a 82-year-old male with pertinent history of mood disorder, essential hypertension, gastroesophageal reflux disease, atrial fibrillation on Xarelto, mixed hyperlipidemia, liver cirrhosis who was brought to the emergency department for evaluation of altered mentation. # Sepsis and hypoxia due to COVID-19 infection Blood culture pending start Dexamethasone Defer antibiotics Wean O2 down as tolerated # acute metabolic encephalopathy secondary to acute infection avoid meds that might worsen AMS recurrent reorientation # Essential hypertension restart Metoprolol # Mood disorder Continue home mood stabilizers #. Atrial fibrillation with RvR IV Metoprolol Home Metoprolol On Xarelto #. Bladder incontinence: Patient self catheterizes 3 times a day. UA w no infection. hold on Abx/ DVT prophylaxis: Xarelto Admit as inpatient and will require overnight minimum hospital stay for close monitoring of mentation and awaiting blood cultures Time Spent With Patient Time: Total time managing care of this patient today ____ minutes. Quality Stroke Does the patient have a stroke diagnosis?: No VTE Prior VTE?: No VTE Risk Level:: Medical - moderate - high VTE Device Contraindication: Treatment Not Indicated VTE Drug Contraindication: N/A - Med Ordered
--- NOTE | 2023-08-18 10:27 | MHC.CM.PN ---
PT ADMITTED, ON [employer] CM ATTEMPTED TO CONTACT PTS PRIMARY HCP/SON, NEVILLE BENITES AT BOTH NUMBERS LISTED ([phone] AND [phone]) NO ANSWER CM CALLED PTS ALTERNATE HCP/DAUGHTER, SRI PERRIN ([phone]) SRI REPORTS THE PT LIVES AT [facility] WHERE HE IS INDEPENDENT WITH SELF CARE STAFF ASSIST WITH MEALS AND HOUSEKEEPING SRI ASSISTS WITH PTS MEDICATIONS AND AT TIMES, [facility] STAFF PROVIDE MED REMINDERS PT USES A ROLLATOR AT [place] AND HAS GRAB BARS IN HIS APARTMENT HCP ON FILE PCP: ASHLEE STARR IMM DELIVERED AND EMAILED TO SRI AT [email or web address] DCP TBD: IF PT REQUIRES STR AT [place], [facility] IS THE PREFERRED SN[facility], FOLLOWED BY [facility] IF PT DISCHARGES BACK TO [facility] , HIS DAUGHTER WILL PROVIDE TRANSPORTATION
[2023-08-18] MEDS: dexAMETHasone sod phosphate 4 MG/ML VIAL 6 MG IVPUSH (10:46)
[2023-08-18] MEDS: Lactated Ringers 1,000 ML 125 ML IVCONT ×2 (10:47→17:25)
--- NOTE | 2023-08-18 18:33 | HO.SKINPHOTO ---
Location: coccyx Category: Stage: Length: Width: Depth: cm Location: Category: Stage: Length: Width: Depth: cm Location: Category: Stage: Length: Width: Depth: cm Location: Category: Stage: Length: Width: Depth: cm Location: Category: Stage: Length: Width: Depth: cm Location: Category: Stage: Length: Width: Depth: cm
[2023-08-18] MEDS: Rivaroxaban 15 MG TABLET PO (20:48)
[2023-08-18] MEDS: Magnesium Oxide 400 MG TABLET PO (20:48)
[2023-08-19 06:13] LABS: PLT CLUMP 1
[2023-08-19 06:14] LABS: Hematocrit 42.6 % (42.0-52.0); Hemoglobin 14.1 g/dl (14.0-18.0); Mean Corpuscular HGB Conc 33.1 g/dl (31.0-36.0); Mean Corpuscular Hemoglobin 30.3 pg (27.0-33.0); Mean Corpuscular Volume 91.6 fL (80.0-98.0); Mean Platelet Volume 10.6 fL (9.4-12.4); Red Blood Count 4.65 X10*6/uL (4.60-5.80); Red Cell Distribution Width 13.7 % (11.0-16.0)
[2023-08-19 06:17] LABS: Platelet Count 123 X10*3/uL (160-400)
[2023-08-19] MEDS: Omeprazole 20 MG CAPSULE.DR PO (06:24)
[2023-08-19 06:27] LABS: Anion Gap 15 (12-20); Blood Urea Nitrogen 16 mg/dL (9-16); Calcium 9.7 mg/dL (8.4-10.2); Carbon Dioxide 23 mmol/L (22-29); Chloride 103 mmol/L (96-108); Creatinine Clr Calc Pharmacy 68.4; Estimated Glomerular Filt Rate > 60; Glucose Random 146 mg/dL (60-115); Potassium 4.5 mmol/L (3.3-5.1); Sodium 136 mmol/L (135-145)
[2023-08-19 07:30] VITALS: BP 134/65; PULSE 78; RESP 18; O2SAT 97
[2023-08-19] MEDS: Metoprolol Tartrate 25 MG TABLET PO ×2 (09:40→20:26)
[2023-08-19] MEDS: Atorvastatin Calcium 40 MG TABLET PO (09:40)
[2023-08-19] MEDS: 0.9 % Sodium Chloride Flush 3 ML SYRINGE IVFLUSH ×2 (09:40→20:27)
[2023-08-19] MEDS: Multivitamin TABLET 1 TAB PO (09:40)
[2023-08-19] MEDS: dexAMETHasone sod phosphate 4 MG/ML VIAL 6 MG IVPUSH (09:40)
[2023-08-19] MEDS: Simethicone 80 MG TAB.CHEW PO ×2 (09:40→20:27)
[2023-08-19] MEDS: Ferrous Sulfate 324 MG TABLET.DR PO ×2 (09:41→20:26)
[2023-08-19] MEDS: Acetaminophen Supp 650 MG SUPP.RECT PR (09:52)
--- NOTE | 2023-08-19 13:37 | HO.PM.IMPN ---
Subjective Subjective Date of Service: 08/19/23 Interval History: More alert but remains confused O2 better in 90s on 3L tolerating clears No fever or chills Review of Systems Review of Systems: Yes all other systems are reviewed and are negative Physical Exam Vital Signs: Vital Signs: Last Vital Signs Temp 98.0 F 08/18/23 19:54 Pulse 78 08/19/23 07:30 Resp 18 08/19/23 07:30 BP 134/65 08/19/23 07:30 Pulse Ox 97 08/19/23 07:30 O2 Del Method Nasal Cannula 08/19/23 07:30 O2 Flow Rate 2 08/19/23 07:30 BMI result Body Mass Index 24.5 Const: Other: Constitutional : Awake, lethargic, weak and frail Neck : Normal inspection, Supple Cardiovascular : irregular irregular, no JVP, no lower extremity edema Respiratory : good bilateral air entry, basal crackles, no wheezes ,on O2 supplement Gastrointestinal: soft, lax, Normal bowel sounds, Non tender Skin : Warm, Dry Neurological : Alert & disoriented x3, No focal deficit Objective Data Active Medications Acetaminophen (Acetaminophen 325 Mg Tablet) 650 mg PO Q6H PRN PRN Reason: Pain, Mild (Pain Scale 1-3) Acetaminophen (Acetaminophen Supp 650 Mg Supp.Rect) 650 mg [place] Q6H PRN PRN Reason: Pain, Mild (Pain Scale 1-3) Last Admin: 08/19/23 09:52 Dose: 650 mg Documented By: LOTTIE Atorvastatin Calcium (Atorvastatin Calcium 40 Mg Tablet) 40 mg PO DAILY [facility] Last Admin: 08/19/23 09:40 Dose: 40 mg Documented By: LOTTIE Dexamethasone Sodium Phosphate (Dexamethasone Sod Phosphate 4 Mg/Ml Vial) 6 mg IVPUSH DAILY [facility] Last Admin: 08/19/23 09:40 Dose: 6 mg Documented By: LOTTIE Docusate Sodium (Docusate Sodium 100 Mg Capsule) 100 mg PO DAILY PRN PRN Reason: Constipation Ferrous Sulfate (Ferrous Sulfate 324 Mg Tablet.) 324 mg PO BID [facility] Last Admin: 08/19/23 09:41 Dose: 324 mg Documented By: LOTTIE Magnesium Oxide (Magnesium Oxide 400 Mg Tablet) 400 mg PO BEDTIME [facility] Last Admin: 08/18/23 20:48 Dose: 400 mg Documented By: RON Melatonin (Melatonin 3 Mg Tablet) 6 mg PO BEDTIME PRN PRN Reason: Insomnia Melatonin (Melatonin 3 Mg Tablet) 3 mg PO BEDTIME PRN PRN Reason: Insomnia Metoprolol Tartrate (Metoprolol Tartrate 25 Mg Tablet) 25 mg PO BID [facility]; Protocol Last Admin: 08/19/23 09:40 Dose: 25 mg Documented By: LOTTIE Multivitamins/Vitamin C (Multivitamin Tablet) 1 tab PO DAILY [facility] Last Admin: 08/19/23 09:40 Dose: 1 tab Documented By: LOTTIE Omeprazole (Omeprazole 20 Mg Capsule.Dr) 20 mg PO DAILY@0630 [facility] Last Admin: 08/19/23 06:24 Dose: 20 mg Documented By: BANDAR Ondansetron HCl (Ondansetron Hcl 4 Mg/2 Ml Vial) 4 mg IVPUSH Q8H PRN PRN Reason: Nausea and Vomiting Polyethylene Glycol (Polyethylene Glycol 3350 17 Gm Powd.Pack) 17 gm PO DAILY PRN PRN Reason: Constipation Rivaroxaban (Rivaroxaban 15 Mg Tablet) 15 mg PO BEDTIME [facility] Last Admin: 08/18/23 20:48 Dose: 15 mg Documented By: RON Simethicone (Simethicone 80 Mg Tab.Chew) 80 mg PO BID [facility] Last Admin: 08/19/23 09:40 Dose: 80 mg Documented By: LOTTIE Sodium Chloride (0.9 % Sodium Chloride Flush 3 Ml Syringe) 3 ml IVFLUSH QSHIFT [facility] Last Admin: 08/19/23 09:40 Dose: 3 ml Documented By: LOTTIE Labs 08/19/23 05:54 08/19/23 05:54 Labs: Laboratory Results - last 24 hr 08/19/23 05:54 MCV 91.6 MCH 30.3 MCHC 33.1 RDW 13.7 Plt Count 123 L MPV 10.6 Absolute Nucleated RBC 0.000 Nucleated RBC % (auto) 0.0 Anion Gap 15 Estim Creat Clear Calc 68.4 Estimated GFR > 60 Random Glucose 146 H Calcium 9.7 Microbiology Microbiology Results: Microbiology 08/17/23 20:28 Blood Culture - Preliminary Blood - Venous No growth after 24 hours. 08/17/23 20:29 Blood Culture - Preliminary Blood - Venous No growth after 24 hours. Assessment and Plan (1) Hypoxia: Status: Acute (2) COVID-19: Status: Acute (3) Acute metabolic encephalopathy: Status: Acute Plan This is a 82-year-old male with pertinent history of mood disorder, essential hypertension, gastroesophageal reflux disease, atrial fibrillation on Xarelto, mixed hyperlipidemia, liver cirrhosis who was brought to the emergency department for evaluation of altered mentation. # Sepsis and hypoxia due to COVID-19 infection Blood culture pending Continue Dexamethasone D2 Defer antibiotics Wean O2 down as tolerated # acute metabolic encephalopathy 2/2 Covid19 infx avoid meds that might worsen AMS recurrent reorientation Advance diet to do PT eval # Essential hypertension restart Metoprolol # Mood disorder Continue home mood stabilizers #. Atrial fibrillation with RvR IV Metoprolol Home Metoprolol On Xarelto #. Bladder incontinence: Patient self catheterizes 3 times a day. UA w no infection. hold on Abx/ DVT prophylaxis: Xarelto Admit as inpatient and will require overnight minimum hospital stay for close monitoring of mentation and awaiting blood cultures Time Spent With Patient Time: Total time managing care of this patient today ____ minutes. Quality Stroke Does the patient have a stroke diagnosis?: No VTE Prior VTE?: No VTE Risk Level:: Medical - moderate - high VTE Device Contraindication: Treatment Not Indicated VTE Drug Contraindication: N/A - Med Ordered
--- NOTE | 2023-08-19 15:07 | MHC.CM.PN ---
This CM spoke with HCP/daughter Shwetha who relayed concerns about pt returning to the Independent living facility. She feels he may need STR first. PT eval pending. They would like [facility] for STR. Of note Shwetha is having a small procedure done on Monday, and if possible she would like to have him D/C if possible on Monday so she can assist in settling him into the facility.
[2023-08-19 15:19] VITALS: BP 134/65; PULSE 78; O2SAT 97
[2023-08-19 16:00] VITALS: BP 142/80; PULSE 83; RESP 20; TEMP 36.3; O2SAT 98
[2023-08-19 19:37] VITALS: BP 147/74; PULSE 70; RESP 16; TEMP 36.3; O2SAT 97
[2023-08-19] MEDS: Rivaroxaban 15 MG TABLET PO (20:26)
[2023-08-19] MEDS: Magnesium Oxide 400 MG TABLET PO (20:27)
[2023-08-20 03:43] VITALS: BP 172/84; PULSE 71; RESP 18; TEMP 36.3; O2SAT 99
[2023-08-20] MEDS: Omeprazole 20 MG CAPSULE.DR PO (05:10)
--- NOTE | 2023-08-20 06:10 | PC.NURSE ---
pt bladdered scanned at 03:33, 298mls. MD notifed and ordered to straight cath patient above 400mls. Patient bladder scanned 06:06, 309mls. MD notified. No further orders placed.
[2023-08-20] MEDS: dexAMETHasone sod phosphate 4 MG/ML VIAL 6 MG IVPUSH (07:44)
[2023-08-20] MEDS: Simethicone 80 MG TAB.CHEW PO ×2 (07:44→21:12)
[2023-08-20] MEDS: 0.9 % Sodium Chloride Flush 3 ML SYRINGE IVFLUSH (07:45)
[2023-08-20] MEDS: Ferrous Sulfate 324 MG TABLET.DR PO ×2 (07:45→21:12)
[2023-08-20] MEDS: Multivitamin TABLET 1 TAB PO (07:45)
[2023-08-20] MEDS: Metoprolol Tartrate 25 MG TABLET PO ×2 (07:45→21:12)
[2023-08-20 08:00] VITALS: BP 169/89; PULSE 68; RESP 18; TEMP 36; O2SAT 96
[2023-08-20] MEDS: Atorvastatin Calcium 40 MG TABLET PO (08:32)
--- NOTE | 2023-08-20 10:18 | MHC.CM.PN ---
Addendum entered by Edna Arango RN 08/20/23 12:23: [facility] UNABLE TO ACCOMMODATE, CM SPOKE W/LIAISON FROM [facility] AFTER SENDING A MESSAGE INQUIRING ON BED AVAILABILITY TOMORROW, PER [facility] THEY COULD ACCOMMODATE PT HOWEVER THE ROOM SHARES A BATHROOM W/A NONCOVID PT SO PT WOULD NEED TO USE A BEDSIDE COMMODE IN ROOM. CM HAS ATTMEPTED TO CONTACT PT'S DTR/HCP SRI AT 12:22PM, DETAILED MESSAGE LEFT AND CM AWAITING CALL BACK. Original Note: EMR REVIEWED, PER HOSPITALIST ANTIC PT COULD BE MEDICALLY CLEARED IF BED OFFER, PREFERRED FACILITY REPORTING THEY DO NOT HAVE A COVID+ BED AT THIS TIME, CM RECEIVED CALL BACK FROM PT'S DTR SRI WHO REPORTS HER SECOND CHOICE WOULD BE [facility] AND REFERRAL EXPANDED, PT'S DTR AWARE CHOICES ARE LIMITED D/T COVID + STATUS, CM WILL CONT TO FOLLOW.
--- NOTE | 2023-08-20 11:29 | P.PNIM_ITS ---
Subjective Subjective Date of Service: 08/20/23 Interval History: More alert but remains confused O2 better in 96 on 3L tolerating advanced diet No fever or chills Review of Systems Review of Systems: Yes all other systems are reviewed and are negative Physical Exam 2 Vital Signs: Vital Signs: Last Vital Signs Temp 96.8 F 08/20/23 08:00 Pulse 68 08/20/23 08:00 Resp 18 08/20/23 08:00 BP 169/89 H 08/20/23 08:00 Pulse Ox 96 08/20/23 08:00 O2 Del Method Nasal Cannula 08/20/23 08:00 O2 Flow Rate 2 08/20/23 03:43 BMI result Body Mass Index 24.5 Const: Other: Constitutional : Awake, lethargic, weak and frail Neck : Normal inspection, Supple Cardiovascular : irregular irregular, no JVP, no lower extremity edema Respiratory : good bilateral air entry, basal crackles, no wheezes ,on O2 supplement Gastrointestinal: soft, lax, Normal bowel sounds, Non tender Skin : Warm, Dry Neurological : Alert & disoriented x3, No focal deficit Objective Data Active Medications Acetaminophen (Acetaminophen 325 Mg Tablet) 650 mg PO Q6H PRN PRN Reason: Pain, Mild (Pain Scale 1-3) Acetaminophen (Acetaminophen Supp 650 Mg Supp.Rect) 650 mg [place] Q6H PRN PRN Reason: Pain, Mild (Pain Scale 1-3) Last Admin: 08/19/23 09:52 Dose: 650 mg Documented By: LOTTIE Atorvastatin Calcium (Atorvastatin Calcium 40 Mg Tablet) 40 mg PO DAILY [facility] Last Admin: 08/20/23 08:32 Dose: 40 mg Documented By: LOTTIE Dexamethasone Sodium Phosphate (Dexamethasone Sod Phosphate 4 Mg/Ml Vial) 6 mg IVPUSH DAILY [facility] Last Admin: 08/20/23 07:44 Dose: 6 mg Documented By: LOTTIE Docusate Sodium (Docusate Sodium 100 Mg Capsule) 100 mg PO DAILY PRN PRN Reason: Constipation Ferrous Sulfate (Ferrous Sulfate 324 Mg Tablet.) 324 mg PO BID [facility] Last Admin: 08/20/23 07:45 Dose: 324 mg Documented By: LOTTIE Magnesium Oxide (Magnesium Oxide 400 Mg Tablet) 400 mg PO BEDTIME [facility] Last Admin: 08/19/23 20:27 Dose: 400 mg Documented By: JAK Melatonin (Melatonin 3 Mg Tablet) 6 mg PO BEDTIME PRN PRN Reason: Insomnia Melatonin (Melatonin 3 Mg Tablet) 3 mg PO BEDTIME PRN PRN Reason: Insomnia Metoprolol Tartrate (Metoprolol Tartrate 25 Mg Tablet) 25 mg PO BID [facility]; Protocol Last Admin: 08/20/23 07:45 Dose: 25 mg Documented By: LOTTIE Multivitamins/Vitamin C (Multivitamin Tablet) 1 tab PO DAILY [facility] Last Admin: 08/20/23 07:45 Dose: 1 tab Documented By: LOTTIE Omeprazole (Omeprazole 20 Mg Capsule.Dr) 20 mg PO DAILY@0630 [facility] Last Admin: 08/20/23 05:10 Dose: 20 mg Documented By: JAK Ondansetron HCl (Ondansetron Hcl 4 Mg/2 Ml Vial) 4 mg IVPUSH Q8H PRN PRN Reason: Nausea and Vomiting Polyethylene Glycol (Polyethylene Glycol 3350 17 Gm Powd.Pack) 17 gm PO DAILY PRN PRN Reason: Constipation Rivaroxaban (Rivaroxaban 15 Mg Tablet) 15 mg PO BEDTIME [facility] Last Admin: 08/19/23 20:26 Dose: 15 mg Documented By: JAK Simethicone (Simethicone 80 Mg Tab.Chew) 80 mg PO BID [facility] Last Admin: 08/20/23 07:44 Dose: 80 mg Documented By: LOTTIE Sodium Chloride (0.9 % Sodium Chloride Flush 3 Ml Syringe) 3 ml IVFLUSH QSHIFT [facility] Last Admin: 08/20/23 07:45 Dose: 3 ml Documented By: LOTTIE Labs 08/19/23 05:54 08/19/23 05:54 Microbiology Microbiology Results: Microbiology 08/17/23 20:28 Blood Culture - Preliminary Blood - Venous No growth after 48 hours. 08/17/23 20:29 Blood Culture - Preliminary Blood - Venous No growth after 48 hours. Assessment and Plan (1) COVID-19: Status: Acute (2) Sepsis: Status: Acute (3) Acute metabolic encephalopathy: Status: Acute Plan This is a 82-year-old male with pertinent history of mood disorder, essential hypertension, gastroesophageal reflux disease, atrial fibrillation on Xarelto, mixed hyperlipidemia, liver cirrhosis who was brought to the emergency department for evaluation of altered mentation. # Sepsis and hypoxia due to COVID-19 infection Blood culture pending Continue Dexamethasone D2 Defer antibiotics Wean O2 down as tolerated # Acute metabolic encephalopathy 2/2 Covid19 infx avoid meds that might worsen AMS recurrent reorientation Advance diet to do PT eval # Essential hypertension restart Metoprolol # Mood disorder Continue home mood stabilizers # Atrial fibrillation with RvR IV Metoprolol Home Metoprolol On Xarelto # Bladder incontinence: Patient self catheterizes 3 times a day. UA w no infection. hold on Abx/ DVT prophylaxis: Xarelto Admit as inpatient and will require overnight minimum hospital pending safe discharge plan Time Spent With Patient Time: Total time managing care of this patient today ____ minutes. Quality Stroke Does the patient have a stroke diagnosis?: No VTE Prior VTE?: No VTE Risk Level:: Medical - moderate - high VTE Device Contraindication: Treatment Not Indicated VTE Drug Contraindication: N/A - Med Ordered
[2023-08-20 15:32] VITALS: BP 152/83; PULSE 74; RESP 16; TEMP 36; O2SAT 98
[2023-08-20 19:47] VITALS: BP 175/82; PULSE 78; RESP 19; TEMP 36; O2SAT 97
[2023-08-20 20:02] VITALS: BP 170/90
[2023-08-20] MEDS: Magnesium Oxide 400 MG TABLET PO (21:12)
[2023-08-20] MEDS: Rivaroxaban 15 MG TABLET PO (21:12)
[2023-08-20] MEDS: Melatonin 3 MG TABLET 6 MG PO (21:15)
--- NOTE | 2023-08-21 02:40 | PC.NURSE ---
pt bladder scanned at 500 mL. straight cath output about 325 mL. pt verbally expresses relief. post void bladder scan shows 130 mL.
[2023-08-21 03:17] VITALS: BP 162/83; PULSE 75; RESP 18; TEMP 36.1; O2SAT 96
[2023-08-21] MEDS: Omeprazole 20 MG CAPSULE.DR PO (05:58)
[2023-08-21 07:25] VITALS: BP 176/88; PULSE 67; RESP 20; TEMP 36.2; O2SAT 98
[2023-08-21] MEDS: dexAMETHasone sod phosphate 4 MG/ML VIAL 6 MG IVPUSH (08:33)
[2023-08-21] MEDS: Metoprolol Tartrate 25 MG TABLET PO (08:33)
[2023-08-21] MEDS: amLODIPine Besylate 2.5 MG TABLET PO (08:33)
[2023-08-21] MEDS: 0.9 % Sodium Chloride Flush 3 ML SYRINGE IVFLUSH (08:33)
[2023-08-21] MEDS: Multivitamin TABLET 1 TAB PO (08:33)
[2023-08-21] MEDS: Ferrous Sulfate 324 MG TABLET.DR PO (08:33)
[2023-08-21] MEDS: Atorvastatin Calcium 40 MG TABLET PO (08:33)
[2023-08-21] MEDS: Simethicone 80 MG TAB.CHEW PO (08:33)
[2023-08-21] MEDS: Furosemide 20 MG TABLET PO (08:33)
[2023-08-21 10:30] VITALS: O2SAT 96
--- NOTE | 2023-08-21 10:35 | P.DS_ITS ---
DS: Providers Provider Date of Service: 08/21/23 Date of admission: 08/17/23 21:22 Primary care physician: Daniel Beauchamp MD DS: Diagnosis Discharge Diagnosis (1) COVID-19: Status: Acute (2) Sepsis: Status: Acute (3) Acute metabolic encephalopathy: Status: Acute (4) Hypoxia: Status: Acute DS: Summary Hospital Course Hospital Course: Admission note HPI This is a 82-year-old male with pertinent history of mood disorder, essential hypertension, gastroesophageal reflux disease, atrial fibrillation on Xarelto, mixed hyperlipidemia, liver cirrhosis who was brought to the emergency department for evaluation of altered mentation. Unable to obtain history from the patient. History obtained from ER provider and chart review. Daughter at bedside states that patient was found to be altered and hence she decided to bring him to the ER. Patient is hard of hearing at baseline but when she spoke to him earlier, he was confused and disoriented. Patient is without complaints at the time of my evaluation. He was noted to be febrile in the ER and tested positive for COVID-19. Unable to obtain review of systems. Patient self caths himself 3 times a day. Hospital course The patient was treated with IV steroids, nebulizers, O2 supplement with good response over the course of hospital stay. weaned down oxygen supplement and became more alert and interactive tolerating diet. To be discharged on Dexamethason to finish total of 10 days of steroids. Continue Dexamethasone as prescribed for next 5 days Increase physical activities as tolerated. Time Spent with Patient Time attestation: Total time managing care of this patient today ____ minutes. Discharge coordination time: Greater than 30 minutes Quality: Safe Use of Opioids Does Pt have an Active Cancer Diagnosis on the Problem List?: No Quality: Stroke Does the patient have a stroke diagnosis?: No Physical Exam Vital Signs: Vital Signs: Last Vital Signs Temp 97.1 F 08/21/23 07:25 Pulse 67 08/21/23 07:25 Resp 20 08/21/23 07:25 BP 176/88 H 08/21/23 07:25 Pulse Ox 98 08/21/23 07:25 O2 Del Method Nasal Cannula 08/21/23 07:25 O2 Flow Rate 1.5 08/21/23 07:25 BMI result Body Mass Index 24.5 Const: Other: Constitutional : Awake, lethargic, weak and frail , very difficult to hear Neck : Normal inspection, Supple Cardiovascular : irregular irregular, no JVP, no lower extremity edema Respiratory : good bilateral air entry, basal crackles, no wheezes ,on O2 supplement Gastrointestinal: soft, lax, Normal bowel sounds, Non tender Skin : Warm, Dry Neurological : Alert & disoriented x3, No focal deficit DS: Data Data Completed and Pending Labs on day of discharge: Preliminary micro results at discharge 08/17/23 20:28 Blood Culture - Preliminary Blood - Venous No growth after 48 hours. 08/17/23 20:29 Blood Culture - Preliminary Blood - Venous No growth after 48 hours. Imaging Chest x-ray: Radiologist's impression: ITS Impressions Chest X-Ray 08/17/23 20:55 IMPRESSION: No active cardiopulmonary disease. Head CT 08/17/23 21:08 IMPRESSION: Cerebral volume loss and extensive bilateral periventricular and central white matter diminished attenuation which is nonspecific but likely to represent microvascular disease. 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 Right sphenoid sinus opacity which appears to be chronic. Abdomen/Pelvis CT 08/17/23 21:36 IMPRESSION: Irregular liver consistent with hepatocellular disease/cirrhosis. 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 No acute intra-abdominal process identified. Fleischner guidelines were followed. Discharge Plan Discharge Anticipated Discharge Date/Time: 08/21/23 10:16 Patient Disposition: Xfer [facility] Discharge Diagnosis: Covid 19 infection Referrals: Daniel Beauchamp MD [Primary Care Provider] - 1 Week Discharge Medications: New dexamethasone 4 mg tablet 4 mg PO DAILY Qty: 5 0RF Continued multivitamin Tablet 1 tab PO DAILY polyethylene glycol 3350 [Miralax] 17 gram Powder In Packet 17 g PO DAILY PRN (Reason: Constipation) amlodipine 2.5 mg Tablet 2.5 mg PO DAILY pantoprazole 40 mg Tablet,Delayed Release (Dr/Ec) 40 mg PO DAILY furosemide [Lasix] 20 mg Tablet 20 mg PO MOWEFR metoprolol tartrate 25 mg Tablet 25 mg PO BID Xarelto 15 mg Tablet 15 mg PO QPM magnesium oxide 400 mg magnesium Tablet 400 mg PO BEDTIME melatonin 3 mg Tablet 3 mg PO BEDTIME PRN (Reason: Insomnia) ferrous sulfate 325 mg (65 mg iron) Tablet 325 mg PO BID docusate sodium 100 mg Tablet 100 mg PO DAILY PRN (Reason: Constipation) simethicone 80 mg Tablet,Chewable 80 mg PO BID PreserVision AREDS-2 250-90-40-1 mg Capsule 1 tab PO BID cholecalciferol (vitamin D3) 25 mcg (1,000 unit) Tablet 25 mcg PO MOWEFR atorvastatin 40 mg tablet 40 mg PO DAILY Discharge Orders: Discharge Order (Routine); Ordered 08/21/23 Ordered By: [place] Diet: Advance to usual diet Activity on Discharge: As tolerated Stand Alone Forms: Patient Portal Discharge page Care Plan Goals: Read below Health Concerns: Read below Plan of Treatment: Read below Assessment: Continue Dexamethasone as prescribed for next 5 days Increase physical activities as tolerated.
--- NOTE | 2023-08-21 11:42 | MHC.CM.PN ---
Second IMM given 08/21, pt already left the building, copy placed in chart. Pt medically cleared for D/C to [facility] for STR. Transportation via [facility].
== END 2023-08-21 11:32 | disposition skilled nursing facility (03) | DRG 871 ==
LOC: HO.ED 20:57 → HO.EDOVER 22:58 → HO.IMC 08-18 14:18
PROVIDERS: Physician Assistant; Admitting Provider Student in an Organized Health Care Education/Training Program; Emergency Provider Emergency Medicine; PCP Internal Medicine; Visit Provider Student in an Organized Health Care Education/Training Program
DX: A41.89 Other specified sepsis (principal); G93.41 Metabolic encephalopathy; U07.1 COVID-19; I69.351 Hemiplegia and hemiparesis following cerebral infarction affecting right dominant side; I69.398 Other sequelae of cerebral infarction; I48.91 Unspecified atrial fibrillation; I10 Essential (primary) hypertension; R09.02 Hypoxemia; R32 Unspecified urinary incontinence; I25.10 Atherosclerotic heart disease of native coronary artery without angina pectoris; F39 Unspecified mood [affective] disorder; C61 Malignant neoplasm of prostate; Z95.2 Presence of prosthetic heart valve; Z87.891 Personal history of nicotine dependence; Z79.01 Long term (current) use of anticoagulants; Z79.899 Other long term (current) drug therapy
CPT/HCPCS: 0241U; 36415; 70450; 71045; 74177; 80048; 80053; 81001; 83605; 83690; 84484; 85025; 85027; 85610; 85730; 87040; 93005; 97162; 99285; J0696; J1100; Q9967

== ENCOUNTER → 2023-08-17 21:22 | Outpatient (BNV) | payer MEDICARE, SELFPAY | PROVIDERS: Admitting Provider Student in an Organized Health Care Education/Training Program; Emergency Provider Emergency Medicine; PCP Internal Medicine; Visit Provider Student in an Organized Health Care Education/Training Program | DX: U07.1 COVID-19 (principal); A41.9 Sepsis, unspecified organism; G93.41 Metabolic encephalopathy; R09.02 Hypoxemia | CPT/HCPCS: 99222; 99232; 99233; 99239 ==